=== PATIENT | female | born 1955 | race Caucasian/White ===

== ENCOUNTER 2017-12-08 02:13 | Observation (INO) | payer OTHER ==
[~2017-12-08] VITALS: Ht 172.7 cm; Wt 82.0 kg
[2017-12-08 02:42] LABS: BASOPHILS ABSOLUTE AUTO 0.01 K/mm3 (0.00-0.23); BASOPHILS PERCENT AUTO 0 % (0-2); EOSINOPHILS PERCENT AUTO 0 % (0-6); Hematocrit 25.3 % (33.0-51.0); Hemoglobin 7.5 g/dL (11.5-16.0); IMMATURE GRAN ABSOLUTE AUTO 0.02 K/mm3 (0.00-0.10); IMMATURE GRAN PERCENT AUTO 0 % (0-1); LYMPHOCYTES PERCENT AUTO 23 % (21-46); MONOCYTES ABSOLUTE AUTO 0.54 K/mm3 (0.16-1.47); MONOCYTES PERCENT AUTO 10 % (4-13); Mean Corpuscular HGB 30.6 pg (26.0-34.0); Mean Corpuscular HGB Conc 29.6 g/dL (31.5-36.5); Mean Corpuscular Volume 103 fL (80-100); Mean Platelet Volume 11.9 fL (9.1-12.4); NEUTROPHILS ABSOLUTE AUTO 3.49 K/mm3 (1.96-9.15); NEUTROPHILS PERCENT AUTO 66 % (41-73); Platelet Count 90 K/mm3 (150-400); RDW Coefficient Variation 15.9 % (11.7-14.2); RDW Standard Deviation 59.7 fL (35.1-46.3); Red Blood Cell Count 2.45 M/mm3 (3.80-5.20); White Blood Cell Count 5.26 K/mm3 (4.00-11.30)
[2017-12-08] MEDS ORDERED: Humalog100 UNIT/1 (02:55)
[2017-12-08] MEDS ORDERED: ALBU90OI INH (02:56)
[2017-12-08] MEDS ORDERED: LISI20 PO (02:56)
[2017-12-08] MEDS ORDERED: INSDET100 SC (02:56)
[2017-12-08] MEDS ORDERED: METO25ER PO (02:57)
[2017-12-08 03:05] LABS: Alanine Aminotransfer (ALT/SGP 57 U/L (12-78); Albumin, Blood 3.4 g/dL (3.4-5.0); Albumin/Globulin Ratio 0.9 (0.8-1.8); Alk Phos 174 U/L (50-136); Anion Gap 6 mmol/L (6-16); Aspartate Aminotrans (AST/SGOT 44 U/L (12-37); Bilirubin, Total 0.2 mg/dL (0.1-1.0); Blood Urea Nitrogen 7 mg/dL (8-24); Bun/Creatinine Ratio 11.3 (12.0-20.0); CO2, Blood 25 mmol/L (21-32); Calcium, Blood 7.9 mg/dL (8.5-10.1); Chloride, Blood 110 mmol/L (98-108); Creatinine, Blood 0.62 mg/dL (0.40-1.00); Globulin, Blood 3.8 g/dL (2.2-4.0); Glomerular Filtration Rate >60 (60-); Glucose, Blood 110 mg/dL (70-99); Potassium, Blood 3.9 mmol/L (3.5-5.5); Sodium, Blood 141 mmol/L (136-145); Total Protein, Blood 7.2 g/dL (6.4-8.2); Troponin I <0.015 ng/mL (0.000-0.040)
[2017-12-08 03:40] LABS: Ethanol (Alcohol), Blood, Med <3 mg/dL
[2017-12-08 04:26] LABS: IMMATURE RETIC FRACTION 22.5 % (2.3-16.0); RETIC HGB EQUIVALENT 24.7 pg (28.20-36.60); RETICULOCYTE ABSOLUTE 0.1277 M/mm3 (0.0200-0.1100); RETICULOCYTE COUNT PERCENT 5.17 % (0.50-2.50)
[2017-12-08 04:39] LABS: Percent Saturation 6.7 % (15.0-50.0)
[2017-12-08] MEDS ORDERED: ACET500 PO (05:53)
[2017-12-08] MEDS ORDERED: Flonase 0.05% N16 GM (05:55)
[2017-12-08 06:14] LABS: BASOPHILS ABSOLUTE AUTO 0.01 K/mm3 (0.00-0.23); BASOPHILS PERCENT AUTO 0 % (0-2); EOSINOPHILS PERCENT AUTO 0 % (0-6); Hematocrit 25.8 % (33.0-51.0); Hemoglobin 7.7 g/dL (11.5-16.0); IMMATURE GRAN ABSOLUTE AUTO 0.03 K/mm3 (0.00-0.10); IMMATURE GRAN PERCENT AUTO 1 % (0-1); LYMPHOCYTES PERCENT AUTO 15 % (21-46); MONOCYTES ABSOLUTE AUTO 0.42 K/mm3 (0.16-1.47); MONOCYTES PERCENT AUTO 8 % (4-13); Mean Corpuscular HGB 30.7 pg (26.0-34.0); Mean Corpuscular HGB Conc 29.8 g/dL (31.5-36.5); Mean Corpuscular Volume 103 fL (80-100); Mean Platelet Volume 11.9 fL (9.1-12.4); NEUTROPHILS ABSOLUTE AUTO 4.03 K/mm3 (1.96-9.15); NEUTROPHILS PERCENT AUTO 76 % (41-73); Platelet Count 92 K/mm3 (150-400); RDW Coefficient Variation 15.9 % (11.7-14.2); Red Blood Cell Count 2.51 M/mm3 (3.80-5.20); White Blood Cell Count 5.29 K/mm3 (4.00-11.30)
[2017-12-08 06:38] LABS: Alanine Aminotransfer (ALT/SGP 54 U/L (12-78); Albumin, Blood 3.5 g/dL (3.4-5.0); Albumin/Globulin Ratio 0.9 (0.8-1.8); Alk Phos 182 U/L (50-136); Anion Gap 7 mmol/L (6-16); Aspartate Aminotrans (AST/SGOT 32 U/L (12-37); Bilirubin, Total 0.3 mg/dL (0.1-1.0); Blood Urea Nitrogen 7 mg/dL (8-24); Bun/Creatinine Ratio 10.5 (12.0-20.0); CO2, Blood 25 mmol/L (21-32); Calcium, Blood 8.3 mg/dL (8.5-10.1); Chloride, Blood 110 mmol/L (98-108); Creatinine, Blood 0.67 mg/dL (0.40-1.00); Globulin, Blood 3.7 g/dL (2.2-4.0); Glomerular Filtration Rate >60 (60-); Glucose, Blood 98 mg/dL (70-99); Potassium, Blood 4.2 mmol/L (3.5-5.5); Sodium, Blood 142 mmol/L (136-145); Total Protein, Blood 7.2 g/dL (6.4-8.2)
[2017-12-08 11:57] LABS: Hematocrit 27.4 % (33.0-51.0); Hemoglobin 8.7 g/dL (11.5-16.0)
[2017-12-08 12:23] LABS: CPK Creatine Kinase 95 U/L (26-193); Troponin I <0.015 ng/mL (0.000-0.040)
[2017-12-08] MEDS ORDERED: Sleep Aid25 MG PO (16:50)
[2017-12-08 20:06] LABS: Hematocrit 27.4 % (33.0-51.0); Hemoglobin 8.4 g/dL (11.5-16.0)
[2017-12-08 20:16] LABS: Troponin I 0.015 ng/mL (0.000-0.040)
[2017-12-09 03:52] LABS: Hemoglobin 8.2 g/dL (11.5-16.0)
[2017-12-09] MEDS ORDERED: ALPR.5 PO (10:19)
[2017-12-09] MEDS ORDERED: FURO20 PO (10:22)
== END 2017-12-09 13:46 | disposition home or self-care (01) ==
LOC: ER 02:13 → PCU 02:14 → ER 04:22 → PCU 04:22
PROVIDERS: Emergency Medicine; Internal Medicine; Physician Assistant
DX: I16.1 Hypertensive emergency (principal); I11.0 Hypertensive heart disease with heart failure; I50.1 Left ventricular failure, unspecified; D50.9 Iron deficiency anemia, unspecified; F41.9 Anxiety disorder, unspecified; J45.909 Unspecified asthma, uncomplicated; E11.9 Type 2 diabetes mellitus without complications; R07.9 Chest pain, unspecified; R06.03 Acute respiratory distress; Z79.4 Long term (current) use of insulin; Z79.899 Other long term (current) drug therapy; Z88.6 Allergy status to analgesic agent
CPT/HCPCS: 36415; 36430; 71046; 80053; 82550; 82728; 82947; 83540; 83550; 83690; 83880; 84484; 85014; 85018; 85025; 85045; 86850; 86900; 86901; 86923; 93005; 93010; 93306; 94640; 94760; 96374; 99285; G0378; G0480; J1650; J1815; J1940; P9016; Q0163

== ENCOUNTER → 2018-02-14 | Outpatient (CLI) | payer OTHER ==
[~2018-02-14] MED LIST: ACET500 PO; ALBU90OI INH; ALPR.5 PO; FURO20 PO; Flonase 0.05% N16 GM; Humalog100 UNIT/1; INSDET100 SC; LISI20 PO; METO25ER PO; Sleep Aid25 MG PO
[2018-02-14 18:05] LABS: BASOPHILS PERCENT AUTO 0 % (0-2); EOSINOPHILS PERCENT AUTO 0 % (0-6); Hematocrit 29.9 % (33.0-51.0); Hemoglobin 9.8 g/dL (11.5-16.0); IMMATURE GRAN ABSOLUTE AUTO 0.02 K/mm3 (0.00-0.10); IMMATURE GRAN PERCENT AUTO 0 % (0-1); LYMPHOCYTES ABSOLUTE AUTO 0.89 K/mm3 (0.84-5.20); LYMPHOCYTES PERCENT AUTO 20 % (21-46); MONOCYTES ABSOLUTE AUTO 0.34 K/mm3 (0.16-1.47); MONOCYTES PERCENT AUTO 8 % (4-13); Mean Corpuscular HGB 31.8 pg (26.0-34.0); Mean Corpuscular HGB Conc 32.8 g/dL (31.5-36.5); Mean Corpuscular Volume 97 fL (80-100); NEUTROPHILS ABSOLUTE AUTO 3.28 K/mm3 (1.96-9.15); NEUTROPHILS PERCENT AUTO 73 % (41-73); RDW Standard Deviation 65.9 fL (35.1-46.3); Red Blood Cell Count 3.08 M/mm3 (3.80-5.20); White Blood Cell Count 4.53 K/mm3 (4.00-11.30)
[2018-02-14 18:17] LABS: Mean Platelet Volume 13.1 fL (9.1-12.4)
[2018-02-14 18:23] LABS: Platelet Count 46 K/mm3 (150-400)
[2018-02-14 18:33] LABS: Alanine Aminotransfer (ALT/SGP 37 U/L (12-78); Albumin, Blood 3.3 g/dL (3.4-5.0); Albumin/Globulin Ratio 0.9 (0.8-1.8); Alk Phos 179 U/L (50-136); Anion Gap 4 mmol/L (6-16); Aspartate Aminotrans (AST/SGOT 23 U/L (12-37); Bilirubin, Total 0.4 mg/dL (0.1-1.0); Blood Urea Nitrogen 12 mg/dL (8-24); Bun/Creatinine Ratio 15.6 (12.0-20.0); CHOL/HDL RATIO 4.5; CO2, Blood 22 mmol/L (21-32); Chloride, Blood 110 mmol/L (98-108); Cholesterol 76 mg/dL (50-200); Creatinine, Blood 0.77 mg/dL (0.40-1.00); Globulin, Blood 3.7 g/dL (2.2-4.0); Glomerular Filtration Rate >60 (60-); Glucose, Blood 92 mg/dL (70-99); HDL Cholesterol 17 mg/dL (>39); Low Density Lipoprotein Chol 34 mg/dL (0-110); Potassium, Blood 4.4 mmol/L (3.5-5.5); Sodium, Blood 136 mmol/L (136-145); Triglycerides 123 mg/dL (30-160); Very Low Density Lipoprot Chol 24 mg/dL (6-32)
== END ==
LOC: LAB 17:10 → LAB SHORT 17:10
PROVIDERS: Nurse Practitioner Family
DX: E11.9 Type 2 diabetes mellitus without complications (principal)
CPT/HCPCS: 80053; 80061; 82043; 83036; 85025

== ENCOUNTER 2018-04-21 14:02 | Emergency (ER) | payer OTHER ==
[~2018-04-21] VITALS: Ht 170.2 cm; Wt 73.5 kg
[2018-04-21 14:45] LABS: BASOPHILS PERCENT AUTO 0 % (0-2); EOSINOPHILS ABSOLUTE AUTO 0.03 K/mm3 (0.00-0.68); EOSINOPHILS PERCENT AUTO 1 % (0-6); Hemoglobin 8.9 g/dL (11.5-16.0); IMMATURE GRAN ABSOLUTE AUTO 0.01 K/mm3 (0.00-0.10); IMMATURE GRAN PERCENT AUTO 0 % (0-1); LYMPHOCYTES ABSOLUTE AUTO 1.24 K/mm3 (0.84-5.20); LYMPHOCYTES PERCENT AUTO 28 % (21-46); MONOCYTES ABSOLUTE AUTO 0.49 K/mm3 (0.16-1.47); MONOCYTES PERCENT AUTO 11 % (4-13); Mean Corpuscular HGB 35.5 pg (26.0-34.0); Mean Corpuscular Volume 108 fL (80-100); Mean Platelet Volume 12.5 fL (9.1-12.4); NEUTROPHILS ABSOLUTE AUTO 2.73 K/mm3 (1.96-9.15); NEUTROPHILS PERCENT AUTO 61 % (41-73); NRBC ABSOLUTE 0.02 K/mm3 (0.00-0.02); NRBC Auto 0.4 /100 WBC (0.0-0.2); Platelet Count 71 K/mm3 (150-400); RDW Coefficient Variation 17.3 % (11.7-14.2); Red Blood Cell Count 2.51 M/mm3 (3.80-5.20)
[2018-04-21 14:55] LABS: International Normalized Ratio 1.03; Prothrombin Time Results 10.6 Sec (9.7-11.5)
[2018-04-21 15:00] LABS: Alanine Aminotransfer (ALT/SGP 46 U/L (12-78); Albumin, Blood 3.6 g/dL (3.4-5.0); Albumin/Globulin Ratio 0.9 (0.8-1.8); Alk Phos 188 U/L (50-136); Anion Gap 5 mmol/L (6-16); Aspartate Aminotrans (AST/SGOT 30 U/L (12-37); Bilirubin, Total 0.3 mg/dL (0.1-1.0); Blood Urea Nitrogen 14 mg/dL (8-24); Bun/Creatinine Ratio 18.9 (12.0-20.0); CO2, Blood 23 mmol/L (21-32); Calcium, Blood 8.6 mg/dL (8.5-10.1); Chloride, Blood 113 mmol/L (98-108); Creatinine, Blood 0.74 mg/dL (0.40-1.00); Globulin, Blood 3.8 g/dL (2.2-4.0); Glomerular Filtration Rate >60 (60-); Glucose, Blood 112 mg/dL (70-99); Potassium, Blood 4.5 mmol/L (3.5-5.5); Sodium, Blood 141 mmol/L (136-145); Total Protein, Blood 7.4 g/dL (6.4-8.2)
== END 2018-04-21 20:01 | disposition left against medical advice (07) ==
LOC: ER 14:02
PROVIDERS: Emergency Medicine
DX: Z53.21 Procedure and treatment not carried out due to patient leaving prior to being seen by health care provider (principal)
CPT/HCPCS: 36415; 70450; 80053; 85025; 85610; 99284

== ENCOUNTER → 2019-03-06 | Outpatient (CLI) | payer OTHER | LOC: LAB SHORT 15:00 → LAB 15:00 | DX: N90.7 Vulvar cyst (principal) | CPT/HCPCS: 87070; 87075; 87205 ==

== ENCOUNTER 2019-03-20 18:44 | Inpatient (IN) | payer OTHER ==
[~2019-03-20] VITALS: Ht 170.2 cm; Wt 63.7 kg
[~2019-03-20 18:44] MED LIST changes: -Humalog100 UNIT/1; +Humalog100 UNIT/3 SC
[2019-03-20 19:39] LABS: Source, Urine Catheter
[2019-03-20 19:47] LABS: Blood, Urine 2+ (Neg); Glucose Qualitative, Urine Neg (Neg); Ketones, Urine 1+ (Neg); Leukocyte Esterase, Urine 3+ (Neg); Nitrite, Urine Neg (Neg); Protein, Urine 3+ (Neg); Urobilinogen, Urine NORM (Normal)
[2019-03-20 19:54] LABS: BASOPHILS ABSOLUTE AUTO 0.01 K/mm3 (0.00-0.23); BASOPHILS PERCENT AUTO 0 % (0-2); EOSINOPHILS PERCENT AUTO 0 % (0-6); Hematocrit 35.1 % (33.0-51.0); Hemoglobin 11.2 g/dL (11.5-16.0); IMMATURE GRAN ABSOLUTE AUTO 0.03 K/mm3 (0.00-0.10); IMMATURE GRAN PERCENT AUTO 1 % (0-1); LYMPHOCYTES ABSOLUTE AUTO 0.82 K/mm3 (0.84-5.20); LYMPHOCYTES PERCENT AUTO 13 % (21-46); MONOCYTES PERCENT AUTO 8 % (4-13); Mean Corpuscular HGB 33.7 pg (26.0-34.0); Mean Corpuscular HGB Conc 31.9 g/dL (31.5-36.5); Mean Corpuscular Volume 106 fL (80-100); NEUTROPHILS ABSOLUTE AUTO 4.83 K/mm3 (1.96-9.15); NEUTROPHILS PERCENT AUTO 78 % (41-73); NRBC ABSOLUTE 0.03 K/mm3 (0.00-0.02); NRBC Auto 0.5 /100 WBC (0.0-0.2); Platelet Count 60 K/mm3 (150-400); RDW Coefficient Variation 20.2 % (11.7-14.2); RDW Standard Deviation 77.7 fL (35.1-46.3); Red Blood Cell Count 3.32 M/mm3 (3.80-5.20); White Blood Cell Count 6.19 K/mm3 (4.00-11.30)
[2019-03-20 19:56] LABS: Appearance, Urine Cloudy (Clear); Bilirubin, Urine 2+ (Neg); Color, Urine Yellow (P-Yellow)
[2019-03-20 19:58] LABS: Bacteria Many /hpf; Red Blood Cells, Urine 0-2 /hpf (0-2); Renal Epithelial Few /hpf (0-Rare); Squamous Epithelial Cells Rare /hpf (Few); Transitional Epithelial Cells Few /hpf (0-Rare); White Blood Cells, Urine TNTC /hpf (0-5)
[2019-03-20 20:08] LABS: International Normalized Ratio 3.06; Prothrombin Time Results 29.3 Sec (9.7-11.5)
[2019-03-20] MEDS ORDERED: BASAGLAR K100 UNIT/1 (20:12)
[2019-03-20] MEDS ORDERED: Humalog100 UNIT/1 (20:12)
[2019-03-20 20:24] LABS: Alanine Aminotransfer (ALT/SGP 34 U/L (12-78); Albumin, Blood 3.5 g/dL (3.4-5.0); Albumin/Globulin Ratio 0.9 (0.8-1.8); Alk Phos 266 U/L (50-136); Anion Gap 10 mmol/L (6-16); Aspartate Aminotrans (AST/SGOT 16 U/L (12-37); Bilirubin, Total 0.2 mg/dL (0.1-1.0); Blood Urea Nitrogen 92 mg/dL (8-24); Bun/Creatinine Ratio 28.1 (12.0-20.0); CO2, Blood 12 mmol/L (21-32); Calcium, Blood 7.4 mg/dL (8.5-10.1); Chloride, Blood 113 mmol/L (98-108); Creatinine, Blood 3.27 mg/dL (0.40-1.00); Glomerular Filtration Rate 15 (60-); Glucose, Blood 116 mg/dL (70-99); Magnesium, Blood 2.4 mg/dL (1.6-2.4); Potassium, Blood 4.2 mmol/L (3.5-5.5); Sodium, Blood 135 mmol/L (136-145); Total Protein, Blood 7.5 g/dL (6.4-8.2); Troponin I <0.015 ng/mL (0.000-0.040)
--- NOTE | 2019-03-21 00:30 | NUR ---
ASSUMED CARE PT ARRIVED TO UNIT APPROX 0005 VIA [facility] FROM ED. PT ABLE T TRANSFER FROM [facility] TO BED AND TOLERATED WELL. DENIES ANY DIZZY OR LIGHTHEADEDNESS WITH THIS. ORIENTED PT TO ROOM, UNIT, AND POLICIES. PT A&O X4, ALTHOUGH A POOR HISTORIAN AND SLIGHTLY FORGETFUL AT TIMES. PT ASKED SOME REPEAT QUESTIONS. ASSESSMENT COMPLETED. VITAL SIGNS STABLE, ALTHOUGH BLOOD PRESSURE SLIGHTLY LOW. BUT MAP REMAINS IN 60 AT THIS TIME. FLUIDS STARTED PER EMAR. AND WILL CONTINUE TO MONITOR THIS. ADDMISSION PROCESS COMPLETED, BEST TO ABILITY. BED IN LOW POSITION, BED ALARM ON, CALL LIGHT IN REACH AND PT DENIES ANY NEEDS AT THIS TIME. WILL CONTINUE TO MONITOR.
[2019-03-21] MEDS ORDERED: METO50 PO (00:32)
[2019-03-21] MEDS ORDERED: Lipitor20 MG PO (00:34)
[2019-03-21] MEDS ORDERED: BUSP5 PO (00:36)
[2019-03-21] MEDS ORDERED: BASAGLAR K100 UNIT/1 SC (00:42)
[2019-03-21 04:44] LABS: BASOPHILS PERCENT AUTO 0 % (0-2); EOSINOPHILS PERCENT AUTO 0 % (0-6); Hematocrit 27.5 % (33.0-51.0); Hemoglobin 8.8 g/dL (11.5-16.0); IMMATURE GRAN ABSOLUTE AUTO 0.02 K/mm3 (0.00-0.10); IMMATURE GRAN PERCENT AUTO 1 % (0-1); LYMPHOCYTES ABSOLUTE AUTO 0.96 K/mm3 (0.84-5.20); LYMPHOCYTES PERCENT AUTO 26 % (21-46); MONOCYTES ABSOLUTE AUTO 0.35 K/mm3 (0.16-1.47); MONOCYTES PERCENT AUTO 10 % (4-13); Mean Corpuscular HGB 33.3 pg (26.0-34.0); Mean Corpuscular Volume 104 fL (80-100); NEUTROPHILS ABSOLUTE AUTO 2.36 K/mm3 (1.96-9.15); NEUTROPHILS PERCENT AUTO 64 % (41-73); RDW Standard Deviation 76.2 fL (35.1-46.3); Red Blood Cell Count 2.64 M/mm3 (3.80-5.20); White Blood Cell Count 3.69 K/mm3 (4.00-11.30)
[2019-03-21 04:51] LABS: Mean Platelet Volume 13.3 fL (9.1-12.4)
[2019-03-21 04:53] LABS: Platelet Count 41 K/mm3 (150-400)
[2019-03-21 04:54] LABS: International Normalized Ratio 3.06; Prothrombin Time Results 29.3 Sec (9.7-11.5)
[2019-03-21 05:06] LABS: Albumin, Blood 2.8 g/dL (3.4-5.0); Albumin/Globulin Ratio 0.9 (0.8-1.8); Bilirubin, Total 0.3 mg/dL (0.1-1.0); Bun/Creatinine Ratio 38.1 (12.0-20.0); Calcium, Blood 7.1 mg/dL (8.5-10.1); Creatinine, Blood 2.1 mg/dL (0.40-1.00); Potassium, Blood 3.7 mmol/L (3.5-5.5); Total Protein, Blood 5.8 g/dL (6.4-8.2)
--- NOTE | 2019-03-21 06:32 | NUR ---
SHIFT SUMMARY PT PLEASANT, COOPERATIVE AND USES CALL LIGHT APPROPRIATELY. PT REMAINS A&O X4, ALTHOUGH AT TIMES HAD A HARD TIME FOLLOWING CONVERSATIONS. ASSESSMENT FINDINGS REMAIN UNCHANGED SINCE ADMISSION. PT AWAKE FOR MOST OF SHIFT. NO S/SX OF ACUTE DISTRESS. BED IN LOW POSITION, CALL LIGHT IN REACH, BED ALARM ON, AND PT DENIES ANY NEEDS AT THIS TIME.
--- NOTE | 2019-03-21 07:45 | NUR ---
AM ASSESSMENT: Pt CBG was 47 this am. Pt sitting up in bed talking and communicating without difficulty. Was given OJ and pt drank it all. States "it tastes really good". LS clear. BT hyperactive. PT states that she does have some abd tenderness and pain with palpation. Pulses palp. Pt is A/o x4 however sometimes conversation is hard to follow. Pt denies other needs at this time. Will continue to monitor. Call light in reach.
--- NOTE | 2019-03-21 10:35 | NUR ---
Spiritual care visit conducted. Patient is sitting up in bed and alert. Patient is very talkative and openly shared about her family, shalonda and medical history. Patient admitted to feeling anxious about her medical conditions. I facilitated a life review, reinforced helpful attitudes and practices, explored patient's islam background, quoted inspirational Bible verses, provided a calming presence and normalized patient's experience. Patient responded well and showed signs of reduced stress.
--- NOTE | 2019-03-21 17:18 | NUR ---
SHIFT SUMMARY: Pt has medical floor orders. Report given to ONEIDA Puente and Pt transfered via W/C to room 358. Pt stable at time of transfer. Pt has done well this shift. Has been up to BSC multiple times with one assist. Pt did go into the bathroom at one point but became cloustrophobic and requested to use the BSC from then on. Pt states that she has problems with anxiety and does not want to panic. VSS throughout shift. Pt has been 100% on RA even though pt states that she feels like she needs oxygen. Assured her that she was fine on RA. PT has seen Pt and worked with her. Recomending SNF placement. Awaiting lab results. No acute changes at this time and stable at end of shift.
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
[2019-03-21 21:07] LABS: Percent Saturation 22.4 % (15.0-50.0)
[2019-03-22 00:07] LABS: Adenovirus F 40/41 Not Detected (NOT DETECT); Astrovirus Not Detected (NOT DETECT); Campylobacter Sp Not Detected (NOT DETECT); Cryptosporidium Not Detected (NOT DETECT); Cyclospora Cayetanensis Not Detected (NOT DETECT); E. Coli O157 Not Detected (NOT DETECT); Entamoeba Histolytica Not Detected (NOT DETECT); Enteroaggregative E. coli-EAEC Not Detected (NOT DETECT); Enteropathogenic E. coli-EPEC Not Detected (NOT DETECT); Enterotoxigenic E. coli-ETEC Not Detected (NOT DETECT); Giardia Lamblia Not Detected (NOT DETECT); Norovirus GI/GII Not Detected (NOT DETECT); Plesiomonas Shigelloides Not Detected (NOT DETECT); Rotavirus A Not Detected (NOT DETECT); Salmonella Sp Not Detected (NOT DETECT); Sapovirus Not Detected (NOT DETECT); Shiga Toxin-prod E. coli-STEC Not Detected (NOT DETECT); Shigella/Enteroin E. coli-EIEC Not Detected (NOT DETECT); Vibrio Cholerae Not Detected (NOT DETECT); Vibrio Sp Not Detected (NOT DETECT); Yersinia Enterocolitica Not Detected (NOT DETECT)
[2019-03-22 05:42] LABS: BASOPHILS PERCENT AUTO 0 % (0-2); EOSINOPHILS PERCENT AUTO 0 % (0-6); Hematocrit 22.9 % (33.0-51.0); Hemoglobin 7.3 g/dL (11.5-16.0); IMMATURE GRAN ABSOLUTE AUTO 0.01 K/mm3 (0.00-0.10); IMMATURE GRAN PERCENT AUTO 0 % (0-1); LYMPHOCYTES ABSOLUTE AUTO 1.18 K/mm3 (0.84-5.20); LYMPHOCYTES PERCENT AUTO 39 % (21-46); MONOCYTES PERCENT AUTO 10 % (4-13); Mean Corpuscular HGB 33.3 pg (26.0-34.0); Mean Corpuscular HGB Conc 31.9 g/dL (31.5-36.5); Mean Corpuscular Volume 105 fL (80-100); NEUTROPHILS ABSOLUTE AUTO 1.56 K/mm3 (1.96-9.15); NEUTROPHILS PERCENT AUTO 51 % (41-73); RDW Coefficient Variation 20.4 % (11.7-14.2); RDW Standard Deviation 77.3 fL (35.1-46.3); Red Blood Cell Count 2.19 M/mm3 (3.80-5.20); White Blood Cell Count 3.05 K/mm3 (4.00-11.30)
[2019-03-22 05:49] LABS: Platelet Count 28 K/mm3 (150-400)
[2019-03-22 06:13] LABS: Alanine Aminotransfer (ALT/SGP 26 U/L (12-78); Albumin, Blood 2.5 g/dL (3.4-5.0); Albumin/Globulin Ratio 0.8 (0.8-1.8); Alk Phos 171 U/L (50-136); Anion Gap 9 mmol/L (6-16); Aspartate Aminotrans (AST/SGOT 20 U/L (12-37); Bilirubin, Total 0.7 mg/dL (0.1-1.0); Blood Urea Nitrogen 44 mg/dL (8-24); Bun/Creatinine Ratio 52.1 (12.0-20.0); CO2, Blood 14 mmol/L (21-32); Calcium, Blood 7.1 mg/dL (8.5-10.1); Chloride, Blood 118 mmol/L (98-108); Creatinine, Blood 0.85 mg/dL (0.40-1.00); Glomerular Filtration Rate >60 (60-); Glucose, Blood 81 mg/dL (70-99); Potassium, Blood 3.2 mmol/L (3.5-5.5); Sodium, Blood 141 mmol/L (136-145); Total Protein, Blood 5.5 g/dL (6.4-8.2)
--- NOTE | 2019-03-22 07:31 | NUR ---
SHIFT SUMMARY PATIENT IS ALERT AND CONFUSED. PATIENT LIKES TO TALK A LOT WITH STAFF AND ASK ABOUT CURRENT DISEASE PROCESS AND WANTS TO LEARN ABOUT HER CURRENT STATUS. PATIENT HAD A CRITICAL PLATELET COUNT THIS AM, LOW BLOOD SUGAR. NOTIFIED CHARGE, DOCTOR, AND DAYSHIFT RN. BED ALARM IS ON AND SUMMER CHILD CAREGIVER NOTIFIED SHE IS A HIGH FALL RISK AND TO NOT BE LEFT ALONE WHEN UP ON BSC. VITALS STABLE.
--- NOTE | 2019-03-22 07:45 | NUR ---
NOTIFIED LABS; HEMO 8.8 TO 7.3, POTASSIUM 3.2, ALBUMIN 3.5 TO 2.5, AND PLATLETS 41 TO 28. STS ORDERED CONSULT. ORDER HAS NOT COME ACROSS YET, BUT WILL CALL.
[2019-03-22 09:56] LABS: Phosphorus, Blood 3.1 mg/dL (2.5-4.9)
--- NOTE | 2019-03-22 15:41 | NUR ---
ALERT. ORIENTED, BUT GOES OFF ON DIFFERENT TANGENTS OFTEN. TOLERATED TRANSFUSION. TOLERATING B.R.A.T. DIET WELL. COOPERATIVE. KNOWS TO USE CALL LIGHT. BSC NEXT TO BED. UNLABORED RESPIRATIONS. DENIES PAIN. WCTM.
--- NOTE | 2019-03-22 18:54 | NUR ---
WAS IN TO SEE PATIENT. [facility] WILL ORDER GI CONSULT FOR DX OF INFLAMMATORY BOWEL DISEASE.
[2019-03-23 02:08] LABS: HBSAG SCREEN Negative (Negative); HEP A AB, IGM Negative (Negative); HEP B CORE AB, IGM Negative (Negative); HEP C VIRUS AB <0.1 (0.0-0.9)
[2019-03-23 05:04] LABS: BASOPHILS PERCENT AUTO 0 % (0-2); EOSINOPHILS PERCENT AUTO 0 % (0-6); Hematocrit 24.5 % (33.0-51.0); Hemoglobin 8.2 g/dL (11.5-16.0); IMMATURE GRAN ABSOLUTE AUTO 0.01 K/mm3 (0.00-0.10); IMMATURE GRAN PERCENT AUTO 0 % (0-1); LYMPHOCYTES ABSOLUTE AUTO 0.97 K/mm3 (0.84-5.20); LYMPHOCYTES PERCENT AUTO 41 % (21-46); MONOCYTES ABSOLUTE AUTO 0.27 K/mm3 (0.16-1.47); MONOCYTES PERCENT AUTO 11 % (4-13); Mean Corpuscular HGB 33.6 pg (26.0-34.0); Mean Corpuscular HGB Conc 33.5 g/dL (31.5-36.5); NEUTROPHILS ABSOLUTE AUTO 1.12 K/mm3 (1.96-9.15); NEUTROPHILS PERCENT AUTO 47 % (41-73); NRBC ABSOLUTE 0.02 K/mm3 (0.00-0.02); NRBC Auto 0.8 /100 WBC (0.0-0.2); RDW Coefficient Variation 21.2 % (11.7-14.2); RDW Standard Deviation 77.4 fL (35.1-46.3); Red Blood Cell Count 2.44 M/mm3 (3.80-5.20); White Blood Cell Count 2.37 K/mm3 (4.00-11.30)
[2019-03-23 05:25] LABS: Hematocrit 24.5 % (33.0-51.0); Hemoglobin 8.2 g/dL (11.5-16.0); Mean Corpuscular HGB 33.5 pg (26.0-34.0); Mean Corpuscular HGB Conc 33.5 g/dL (31.5-36.5); NRBC ABSOLUTE 0.02 K/mm3 (0.00-0.02); NRBC Auto 0.8 /100 WBC (0.0-0.2); RDW Coefficient Variation 21.2 % (11.7-14.2); RDW Standard Deviation 76.2 fL (35.1-46.3); Red Blood Cell Count 2.45 M/mm3 (3.80-5.20); White Blood Cell Count 2.43 K/mm3 (4.00-11.30)
[2019-03-23 05:29] LABS: Alanine Aminotransfer (ALT/SGP 28 U/L (12-78); Albumin, Blood 2.4 g/dL (3.4-5.0); Albumin/Globulin Ratio 0.9 (0.8-1.8); Alk Phos 159 U/L (50-136); Anion Gap 9 mmol/L (6-16); Aspartate Aminotrans (AST/SGOT 19 U/L (12-37); Bilirubin, Total 0.3 mg/dL (0.1-1.0); Blood Urea Nitrogen 17 mg/dL (8-24); Bun/Creatinine Ratio 23.8 (12.0-20.0); CO2, Blood 15 mmol/L (21-32); Calcium, Blood 7.4 mg/dL (8.5-10.1); Chloride, Blood 122 mmol/L (98-108); Creatinine, Blood 0.71 mg/dL (0.40-1.00); Globulin, Blood 2.7 g/dL (2.2-4.0); Glomerular Filtration Rate >60 (60-); Glucose, Blood 77 mg/dL (70-99); Potassium, Blood 3.5 mmol/L (3.5-5.5); Sodium, Blood 146 mmol/L (136-145); Total Protein, Blood 5.1 g/dL (6.4-8.2)
[2019-03-23 05:33] LABS: Mean Corpuscular Volume 100 fL (80-100)
[2019-03-23 05:35] LABS: Platelet Count 26 K/mm3 (150-400)
[2019-03-23 05:36] LABS: Mean Corpuscular Volume 100 fL (80-100); Platelet Count 27 K/mm3 (150-400)
[2019-03-23 05:54] LABS: BASOPHILS PERCENT MAN 0 % (0-2); EOSINOPHILS PERCENT MAN 0 % (0-6); LYMPHOCYTES ABSOLUTE MAN 0.75 K/mm3 (0.84-5.20); LYMPHOCYTES PERCENT MAN 31 % (21-46); MONOCYTES ABSOLUTE MAN 0.14 K/mm3 (0.16-1.47); MONOCYTES PERCENT MAN 6 % (4-13); NEUTROPHILS ABSOLUTE MAN 1.53 K/mm3 (1.96-9.15); SEG NEUTROPHILS PERCENT MAN 63 % (41-73); TOTAL CELLS COUNTED 100
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
[2019-03-24 06:33] LABS: BASOPHILS PERCENT AUTO 0 % (0-2); EOSINOPHILS PERCENT AUTO 0 % (0-6); Hematocrit 27.5 % (33.0-51.0); IMMATURE GRAN ABSOLUTE AUTO 0.03 K/mm3 (0.00-0.10); IMMATURE GRAN PERCENT AUTO 1 % (0-1); LYMPHOCYTES PERCENT AUTO 28 % (21-46); MONOCYTES ABSOLUTE AUTO 0.54 K/mm3 (0.16-1.47); MONOCYTES PERCENT AUTO 17 % (4-13); Mean Corpuscular HGB 32.8 pg (26.0-34.0); Mean Corpuscular HGB Conc 32.7 g/dL (31.5-36.5); Mean Corpuscular Volume 100 fL (80-100); NEUTROPHILS ABSOLUTE AUTO 1.74 K/mm3 (1.96-9.15); NEUTROPHILS PERCENT AUTO 54 % (41-73); RDW Coefficient Variation 21.5 % (11.7-14.2); RDW Standard Deviation 78.6 fL (35.1-46.3); Red Blood Cell Count 2.74 M/mm3 (3.80-5.20); White Blood Cell Count 3.21 K/mm3 (4.00-11.30)
--- NOTE | 2019-03-24 06:36 | NUR ---
SHIFT SUMMARY PT A/O C/O HEADACHE AND MEDICATED PER EMAR. WANTS TO BE DONE WITH THE BRAT DIET. NO STOOL THIS SHIFT. INDEPENDENT TO BSC. SHE WAS ABLE TO SLEEP ON AND OFF T/O NIGHT SHE SAID MORE SLEEP THAN PREVIOUS NIGHT. CALL LIGHT IN REACH.
[2019-03-24 06:40] LABS: Platelet Count 28 K/mm3 (150-400)
[2019-03-24 06:46] LABS: Anion Gap 7 mmol/L (6-16); Blood Urea Nitrogen 8 mg/dL (8-24); Bun/Creatinine Ratio 11.6 (12.0-20.0); CO2, Blood 19 mmol/L (21-32); Calcium, Blood 7.4 mg/dL (8.5-10.1); Chloride, Blood 117 mmol/L (98-108); Creatinine, Blood 0.69 mg/dL (0.40-1.00); Glomerular Filtration Rate >60 (60-); Glucose, Blood 86 mg/dL (70-99); Potassium, Blood 3.6 mmol/L (3.5-5.5); Sodium, Blood 143 mmol/L (136-145)
[2019-03-24] MEDS ORDERED: FOLI1 PO (15:51)
[2019-03-24] MEDS ORDERED: CYAN1000I IM (15:51)
[2019-03-24] MEDS ORDERED: Culturelle1 CAP PO (15:52)
[2019-03-24] MEDS ORDERED: PANT40 PO (15:53)
[2019-03-24] MEDS ORDERED: FERRLECIT62.5 MG/5 IV (15:54)
[2019-03-24] MEDS ORDERED: CHOL10002 PO (15:55)
--- NOTE | 2019-03-24 18:46 | NUR ---
DISCHARGE NOTE- PT WAS GIVEN VERBAL AND WRITTEN DISCHARGE INSTRUCTIONS AND ACKNOWLEDGED UNDERSTANDING OF THEM. NO FURTHER QUESTIONS AT THE TIME OF DISCHARGE. IV'S DC'D PRIOR TO DISCHARGE, PT INSTRUCTED TO REMOVE COBAN IN 1 HOUR FROM IV REMOVAL.
--- NOTE | 2019-03-25 08:29 | NUR ---
LATE ENTRY: AFTER PATIENT D/C'D HOME, IT WAS NOTED THAT DR. CASTILLO ORDERED CEFTIN 500 MG PO BID #[id number] WITH NO REFILLS. THIS RN CALLED IN RX TO [facility]. ALSO, DR. CASTILLO ORDERED FOR PT TO FOLLOW UP WITH DR. VELEZ IN 1 MONTH. THIS RN CALLED PT AND NOTIFIED HER OF THE ABOVE. PT VERBALIZED UNDERSTANDING AND STATED SHE WAS ON HER WAY TO GET HER MEDICATIONS FROM THE PHARMACY.
[2019-03-25 19:05] LABS: T-TRANSGLUTAMINASE (TTG) IGA 51 U/mL (0-3); T-TRANSGLUTAMINASE (TTG) IGG <2 U/mL (0-5)
[2019-03-26 06:07] LABS: (LD) FRACTION 1 29 % (17-32); (LD) FRACTION 2 42 % (25-40); (LD) FRACTION 3 20 % (17-27); (LD) FRACTION 4 5 % (5-13); (LD) FRACTION 5 4 % (4-20); LDH 168 IU/L (119-226)
== END 2019-03-24 18:24 | disposition home or self-care (01) | DRG 683 ==
LOC: ER 18:44 → PCU 22:33 → MEDS 22:33 → PCU 23:51 → MEDS 03-21 17:06
PROVIDERS: Emergency Medicine; Internal Medicine; Internal Medicine Hematology & Oncology; ADMIT Hospitalist
PROC: 30233N1 Transfusion of Nonautologous Red Blood Cells into Peripheral Vein, Percutaneous Approach (ICD-10-PCS; principal; 2019-03-20)
DX: N17.9 Acute kidney failure, unspecified (principal); D68.9 Coagulation defect, unspecified; D61.818 Other pancytopenia; N39.0 Urinary tract infection, site not specified; E87.2 Acidosis; E87.1 Hypo-osmolality and hyponatremia; E86.0 Dehydration; I95.9 Hypotension, unspecified; D50.9 Iron deficiency anemia, unspecified; B96.20 Unspecified Escherichia coli [E. coli] as the cause of diseases classified elsewhere; E11.9 Type 2 diabetes mellitus without complications; K52.9 Noninfective gastroenteritis and colitis, unspecified; E63.9 Nutritional deficiency, unspecified; Z79.4 Long term (current) use of insulin; I10 Essential (primary) hypertension; E03.9 Hypothyroidism, unspecified; D69.6 Thrombocytopenia, unspecified; J45.909 Unspecified asthma, uncomplicated; E53.8 Deficiency of other specified B group vitamins
CPT/HCPCS: 36415; 36430; 74176; 80048; 80053; 80074; 81001; 82272; 82306; 82607; 82728; 82746; 82947; 83010; 83516; 83540; 83550; 83605; 83615; 83625; 83690; 83735; 83880; 84100; 84484; 85007; 85025; 85027; 85610; 86340; 86850; 86900; 86901; 86923; 87077; 87086; 87186; 87507; 93005; 93010; 96361-59; 96365-59; 96375-59; 97110; 97116; 97162; 97530; 99285-25; C9113; J0696; J1170; J2916; J3420; J7030; J7050; P9016; P9612

== ENCOUNTER 2019-04-04 00:25 | Day surgery (SDC) | payer OTHER ==
[~2019-04-04 00:25] MED LIST changes: +BASAGLAR K100 UNIT/1; +BASAGLAR K100 UNIT/1 SC; +BUSP5 PO; +CHOL10002 PO; +CYAN1000I IM; +Culturelle1 CAP PO; +FERRLECIT62.5 MG/5 IV; +FOLI1 PO; +Humalog100 UNIT/1; +Lipitor20 MG PO; +METO50 PO; +PANT40 PO
== END 2019-04-04 14:51 | disposition home or self-care (01) ==
LOC: ATC 00:25
DX: D50.9 Iron deficiency anemia, unspecified (principal); I10 Essential (primary) hypertension; E11.9 Type 2 diabetes mellitus without complications; E03.9 Hypothyroidism, unspecified; Z79.4 Long term (current) use of insulin; Z88.6 Allergy status to analgesic agent; Z88.0 Allergy status to penicillin; Z79.899 Other long term (current) drug therapy
CPT/HCPCS: 96365; 96372; J2916; J3420

== ENCOUNTER 2019-04-06 00:04 | Day surgery (SDC) | payer OTHER | END 2019-04-06 14:53 | disposition home or self-care (01) | LOC: ATC 00:04 | DX: D50.9 Iron deficiency anemia, unspecified (principal); I10 Essential (primary) hypertension; E11.9 Type 2 diabetes mellitus without complications; E03.9 Hypothyroidism, unspecified; Z79.4 Long term (current) use of insulin; Z88.6 Allergy status to analgesic agent; Z88.0 Allergy status to penicillin | CPT/HCPCS: 96365; 96372; J2916; J3420 ==

== ENCOUNTER 2019-04-11 00:08 | Day surgery (SDC) | payer OTHER | END 2019-04-11 14:44 | disposition home or self-care (01) | LOC: ATC 00:08 | DX: D50.9 Iron deficiency anemia, unspecified (principal); E11.9 Type 2 diabetes mellitus without complications; I10 Essential (primary) hypertension; E03.9 Hypothyroidism, unspecified; Z88.6 Allergy status to analgesic agent; Z88.0 Allergy status to penicillin; Z79.4 Long term (current) use of insulin | CPT/HCPCS: 96365; 96372; J2916; J3420 ==

== ENCOUNTER 2019-04-13 00:36 | Day surgery (SDC) | payer OTHER | END 2019-04-13 15:03 | disposition home or self-care (01) | LOC: ATC 00:36 | DX: D50.9 Iron deficiency anemia, unspecified (principal); E11.9 Type 2 diabetes mellitus without complications; I10 Essential (primary) hypertension; E03.9 Hypothyroidism, unspecified; Z88.0 Allergy status to penicillin; Z88.6 Allergy status to analgesic agent | CPT/HCPCS: 96365; 96372; J2916; J3420 ==

== ENCOUNTER → 2019-05-09 | Outpatient (CLI) | payer OTHER | END | disposition home or self-care (01) | LOC: LAB 14:32 → LAB SHORT 14:32 | DX: N39.0 Urinary tract infection, site not specified (principal) | CPT/HCPCS: 87086 ==

== ENCOUNTER 2021-04-17 11:22 | Inpatient (IN) | payer OTHER ==
[~2021-04-17] VITALS: Ht 172.7 cm; Wt 102.6 kg
[~2021-04-17 11:22] MED LIST changes: +BANOPHEN25 MG PO; -CHOL10002 PO; -Sleep Aid25 MG PO; +VITAMIN D31000 UNI1 PO
[2021-04-17] MEDS ORDERED: METFORMIN HCL1000 M7 PO (12:24)
[2021-04-17] MEDS ORDERED: PIOGLITAZONE HC15 MG PO (12:26)
[2021-04-17] MEDS ORDERED: Prinivil10 MG PO (12:26)
[2021-04-17] MEDS ORDERED: Vitamin B-121000 MCG PO (12:27)
[2021-04-17 12:30] LABS: BASOPHILS ABSOLUTE AUTO 0.03 K/mm3 (0.00-0.23); BASOPHILS PERCENT AUTO 0 % (0-2); EOSINOPHILS ABSOLUTE AUTO 0.03 K/mm3 (0.00-0.68); EOSINOPHILS PERCENT AUTO 0 % (0-6); Hematocrit 34.7 % (33.0-51.0); Hemoglobin 11.1 g/dL (11.5-16.0); IMMATURE GRAN ABSOLUTE AUTO 0.15 K/mm3 (0.00-0.10); IMMATURE GRAN PERCENT AUTO 1 % (0-1); LYMPHOCYTES ABSOLUTE AUTO 1.94 K/mm3 (0.84-5.20); LYMPHOCYTES PERCENT AUTO 16 % (21-46); MONOCYTES PERCENT AUTO 6 % (4-13); Mean Corpuscular HGB 30.7 pg (26.0-34.0); Mean Corpuscular Volume 96 fL (80-100); NEUTROPHILS PERCENT AUTO 77 % (41-73); Platelet Count 103 K/mm3 (150-400); RDW Coefficient Variation 15.7 % (11.7-14.2); RDW Standard Deviation 55.7 fL (35.1-46.3); Red Blood Cell Count 3.62 M/mm3 (3.80-5.20); White Blood Cell Count 12.05 K/mm3 (4.00-11.30)
[2021-04-17 12:44] LABS: Albumin, Blood 4.2 g/dL (3.4-5.0); Bilirubin, Total 0.3 mg/dL (0.1-1.0); Bun/Creatinine Ratio 17.3 (12.0-20.0); Calcium, Blood 8.9 mg/dL (8.5-10.1); Creatinine, Blood 5.72 mg/dL (0.40-1.00); Globulin, Blood 4.1 g/dL (2.2-4.0); Total Protein, Blood 8.3 g/dL (6.4-8.2)
[2021-04-17 13:04] LABS: Appearance, Urine Hazy (Clear); Blood, Urine 2+ (Neg); Color, Urine Yellow (P-Yellow); Glucose Qualitative, Urine Neg (Neg); Ketones, Urine 1+ (Neg); Leukocyte Esterase, Urine 3+ (Neg); Nitrite, Urine Neg (Neg); Protein, Urine 3+ (Neg); Urobilinogen, Urine NORM (Normal)
[2021-04-17 13:26] LABS: Bilirubin, Urine 3+ (Neg)
[2021-04-17 13:28] LABS: Bacteria Mod /hpf
[2021-04-17 13:29] LABS: Squamous Epithelial Cells Few /hpf (Few)
[2021-04-17 13:31] LABS: Hyaline Casts Rare /lpf (0-2)
[2021-04-17 15:38] LABS: Base Excess Venous -20.4 mmol/L; Bicarbonate Venous 9.9 mmol/L (24.0-30.0); PCO2 Venous 40.3 mmHg (38-42); PO2 Venous 54.4 mmHg (38-42)
[2021-04-17 15:39] LABS: pH Blood Venous 7.02 (7.34-7.37)
[2021-04-17 16:05] LABS: Prothrombin Time Results 10.8 Sec (9.7-11.5)
[2021-04-17 17:52] LABS: Bun/Creatinine Ratio 19.3 (12.0-20.0); Calcium, Blood 8.5 mg/dL (8.5-10.1); Creatinine, Blood 4.82 mg/dL (0.40-1.00); Potassium, Blood 5.7 mmol/L (3.5-5.5)
--- NOTE | 2021-04-17 18:50 | NUR ---
ADMISSION: REPORT RECEIVED FROM ATM SERVICER. PT TO UNIT AT 1700. UPON ASSESSMENT PT IS IN NO VISABLE DISTRESS, A/O,VSS. DENIES PAIN AND ABLE TO AMBULATE TO BED. PT ORIENTED TO ROOM, CALL LIGHT. TELE APPLIED AND BOX VERIFIED. FLUID BOLUS OF 1000ML STARTED. EKG COMPLETED,PLACED IN CHART. SEE EMAR FOR ADDITIONAL MEDS GIVEN. WILL CTM
--- NOTE | 2021-04-17 18:53 | NUR ---
SUMMARY: NO ACUTE CHANGE SINCE ADMIT, VSS. PT HAS YET TO VOID. TELE STABLE, ADMISSION CHARTING COMPLETE. WILL REPORT TO NOC RN.
[2021-04-18 04:27] LABS: BASOPHILS ABSOLUTE AUTO 0.02 K/mm3 (0.00-0.23); BASOPHILS PERCENT AUTO 0 % (0-2); EOSINOPHILS ABSOLUTE AUTO 0.01 K/mm3 (0.00-0.68); EOSINOPHILS PERCENT AUTO 0 % (0-6); Hematocrit 27.1 % (33.0-51.0); Hemoglobin 8.6 g/dL (11.5-16.0); IMMATURE GRAN PERCENT AUTO 1 % (0-1); LYMPHOCYTES ABSOLUTE AUTO 1.36 K/mm3 (0.84-5.20); LYMPHOCYTES PERCENT AUTO 19 % (21-46); MONOCYTES ABSOLUTE AUTO 0.71 K/mm3 (0.16-1.47); MONOCYTES PERCENT AUTO 10 % (4-13); Mean Corpuscular HGB 29.9 pg (26.0-34.0); Mean Corpuscular HGB Conc 31.7 g/dL (31.5-36.5); Mean Corpuscular Volume 94 fL (80-100); NEUTROPHILS ABSOLUTE AUTO 4.81 K/mm3 (1.96-9.15); NEUTROPHILS PERCENT AUTO 69 % (41-73); Platelet Count 60 K/mm3 (150-400); RDW Coefficient Variation 15.9 % (11.7-14.2); RDW Standard Deviation 54.5 fL (35.1-46.3); Red Blood Cell Count 2.88 M/mm3 (3.80-5.20); White Blood Cell Count 7.01 K/mm3 (4.00-11.30)
[2021-04-18 04:43] LABS: Albumin, Blood 3.3 g/dL (3.4-5.0); Bilirubin, Total 0.2 mg/dL (0.1-1.0); Bun/Creatinine Ratio 25.6 (12.0-20.0); Calcium, Blood 7.8 mg/dL (8.5-10.1); Creatinine, Blood 3.6 mg/dL (0.40-1.00); Globulin, Blood 3.2 g/dL (2.2-4.0); Potassium, Blood 5.8 mmol/L (3.5-5.5); Total Protein, Blood 6.5 g/dL (6.4-8.2)
--- NOTE | 2021-04-18 06:14 | NUR ---
SHIFT SUMMARY NO ACUTE CHANGES THIS SHIFT. PT A&OX3, FORGETFUL. SPO2>90% ON RA. TELEMETRY REAS SR, HR 60'S. PT AMBULATED W/ SBA TO BATHROOM TO VOID. NO BM THIS SHIFT. PT DENIED PAIN. FLUIDS INFUSED PER EMAR. PT WATCHED TV MOST OF NIGHT. CALL LIGHT IN REACH. WILL GIVE REPORT TO ONCOMING NURSE.
--- NOTE | 2021-04-18 13:55 | NUR ---
PT COMPLAINS OF NAUSEA THIS AFTERNOON AFTER LUNCH. ZOFRAN GIVEN WITH GOOD RELIEF. NO NEEDS AT THIS TIME. IN TO VISIT PATIENT. DESCRIBES BEING EXTREMELY CONFUSED WHEN SHE FIRST CAME IN AND HOW HER CONFUSION IS IMPROVING. PT STILL ASKING SOME REPETATIVE QUESTIONS, BUT ANSWERING CARE QUESTIONS APPROPRIATETLY. LR INFUSING AT THIS TIME. WILL CONTINUE TO MONITOR.
[2021-04-18 15:20] LABS: Bun/Creatinine Ratio 35.1 (12.0-20.0); Calcium, Blood 8.1 mg/dL (8.5-10.1); Creatinine, Blood 2.31 mg/dL (0.40-1.00); Potassium, Blood 6.1 mmol/L (3.5-5.5)
[2021-04-18 18:44] LABS: Glucose, Blood 96 mg/dL (70-99); Potassium, Blood 5.2 mmol/L (3.5-5.5)
--- NOTE | 2021-04-18 19:20 | NUR ---
SHIFT SUMMARY: PT REMAINS ALERT AND ORIENTED X3. ON TELE SHOWING SINUS WITH 1ST DEGREE BLOCK AND BBB. HR REMAINS 60-70'S. VITAL SIGNS REMAIN STABLE. ON ROOM AIR. URINATING WELL. UP TO BATHROOM WITH 1 PERSON ASSIST. BED ALARM ON PATIENT IS FORGETFUL AND GETS UP WITHOUT CALLING AT TIMES. EDUCATION FARM EQUIPMENT ENGINE MECHANIC LIGHT, FALL PREVENTION AND SAFETY REINFORCED THROUGHOUT THE SHIFT. DR. LOVE REQUESTING WE WATCH BOWEL FOR BOWEL MOVMENTS AND NOTE COLORING. PT DID NOT HAVE BOWEL MOVEMENT THIS SHIFT. INFORMATION PASSED ALONG TO NIGHT NURSE IN REPORT. AC BLOOD SUGARS IN PLACE. SODIUM BICARB/SODIUM CHLORIDE INFUSING AT THIS TIME. PT EATING WELL. ONE EPISODE OF NAUSEA THIS SHIFT, RELIEVED WITH ZOFRAN. REPORTED OFF TO ONCOMING RN.
[2021-04-18 20:27] LABS: Bun/Creatinine Ratio 35.9 (12.0-20.0); Calcium, Blood 8.8 mg/dL (8.5-10.1); Creatinine, Blood 2.09 mg/dL (0.40-1.00); Potassium, Blood 5.6 mmol/L (3.5-5.5)
--- NOTE | 2021-04-19 05:36 | NUR ---
SHIFT SUMMARY NO ACUTE CHANGES THIS SHIFT. PT ALERT, CONFUSED. SOMETIMES NOT ABLE TO TELL WHERE SHE IS. SP02>90% ONRA. TELEMETRY READS SR, HR 60'S-70'S. PT 1 PERSON ASSIST TO BSC TO VOID. INITIALLY WAS WALKING W/ FWWW TO BATHROOM, BUT C/O OF DIZZINESS/WEAKNESS. BSC AND FWW FOR SAFETY. DENIES PAIN. PARTIAL BED BATH/HAIR WASH DONE. SOMETIMES USES CALL LIGHT APPROPRIATELY. SLEPT OFF AND ON T/O NIGHT. CALL LIGHT IN REACH. WILL GIVE REPORT TO ONCOMING NURSE.
[2021-04-19 09:29] LABS: Bun/Creatinine Ratio 41.5 (12.0-20.0); Calcium, Blood 8.3 mg/dL (8.5-10.1); Creatinine, Blood 1.59 mg/dL (0.40-1.00)
--- NOTE | 2021-04-19 10:01 | NUR ---
PT ALERT AND ORIENTED X3. CONFUSION PRESENT, SEEMS TO HAVE INCREASED SINCE YESTERDAY DAY SHIFT. NEURO WNL. ANSWERING CARE QUESTIONS APPROPRIATELY. QUESTIONS ARE REPETATIVE AND PATIENT DOES NOT SEEM RECEPTIVE OF INFORMATION. ANXIOUS THIS MORNING, WORRYING ABOUT "PERSONAL FINANCES". TELE SHOWING SINUS WITH HR 60-70'S. DENIES CHEST PAIN/PRESSURE. VITAL SIGNS STABLE. ON ROOM AIR. BOWEL TONES PRESENT. PERIPHERAL PULSES STRONG. SBA WITH FWW FOR SAFETY. BED ALARM ON PATIENT IS CONFUSED AND IMPULSIVE. NO BOWEL MOVMENT THIS SHIFT. ATTENDS IN PLACE. PT VOIDING WELL. SKIN PALE/FRAGILE. BRUISING SCATTERED THROUGHOUT. LEFT AC IV SALINE LOCKED AND FLUSHING WELL. AC BLOOD SUGARS IN PLACE. MEDICAL STATUS WITH NO TELE. PT TRANSFERING TO ROOM 333. WILL REPORT OFF AND TRANSFER PATIENT VIA WHEELCHAIR.
--- NOTE | 2021-04-19 10:32 | NUR ---
PT TRANSPORTED TO MEDICAL FLOOR VIA WHEELCHAIR WITH ALL BELONGINGS. ATTEMPTED TO CALL SON JENNIFFER PER PATIENT REQUEST WITH NO ANSWER.
--- NOTE | 2021-04-19 17:57 | NUR ---
SHIFT SUMMARY- PT TRANSFERED TO UNIT FROM PCU. PT IS ALERT, PLESANT AND COOPERATIVE. SHE IS EATING AND DRINKING WELL. SHE IS RECIEVING IV ABX. HER BLOOD PRESSURE WAS ELEVATED THIS AFTERNOON. GOT ORDERS FOR PRN HYDRALAZINE, GIVEN, AND REASSESED WITH DESIRED EFFECT. SHE HAS INTERMITENT CONFUSION, AND HAS GOTTEN UP, SETTING OFF BED ALARM, AND HAS AMBULATED INTO NEIGHBORING PT ROOM SEVERAL TIMES. SHE WILL BE TRANSFERED INTO THE SCU THIS EVENING. HER BED IS IN THE LOW POSTION, CALL LIGHT WITHIN REACH, AND BED ALARM IS ON.
[2021-04-20 05:12] LABS: Bun/Creatinine Ratio 37.9 (12.0-20.0); Calcium, Blood 8.3 mg/dL (8.5-10.1); Creatinine, Blood 1.16 mg/dL (0.40-1.00); Potassium, Blood 4.8 mmol/L (3.5-5.5)
--- NOTE | 2021-04-20 05:50 | NUR ---
SHIFT SUMMARY- PT. A&O WITH SOME CONFUSION. C/O HEADACHE LAST NIGHT, MEDICATED PER EMAR WITH GOOD EFFECT. PT. IMPULSIVE AT TIMES, 1 ASSIST TO BATHROOM W/WALKER. FREQUENTLY REMINDED TO CALL FOR ASSISTANCE, PT. VERBALIZED UNDERSTANDING. BP HAS BEEN ELEVATED THIS SHIFT, MEDICATED W/SCHEDULED AND PRN MEDS PER EMAR. BP IMPROVED. PT. RESTED QUIETLY T/O THE NIGHT, NO APPARENT DISTRESS NOTED. CALL LIGHT WITHIN REACH, SIDE RAILS UPX2, AND BED ALARM ON. WILL CONT TO MONITOR.
--- NOTE | 2021-04-20 12:59 | NUR ---
DISCHARGE NOTE PT IV REMOVED BY THIS RN PER DOCUMENTATION. DC INSTRUCTIONS REVIEWED WITH PT WHO VERBALIZED UNDERSTANDING. PT DRESSED SELF IN HOME CLOTHING. PT BELONGINGS GATHERED. CAME TO PICK PT UP. PT REFUSED WHEELCHAIR AND WALKED OFF UNIT WITH AND RESPITE WORKER. PT HAS LEFT THE BUILDING IN PRIVATE VEHICLE WITH BELONGINGS PRESENT.
== END 2021-04-20 12:58 | disposition home or self-care (01) | DRG 683 ==
LOC: ER 11:22 → ERHOLD 14:28 → PCU 16:50 → MEDS 04-19 10:30
PROVIDERS: Emergency Medicine; Family Medicine; Nurse Practitioner Acute Care; ADMIT Internal Medicine
DX: N17.8 Other acute kidney failure (principal); N39.0 Urinary tract infection, site not specified; G93.49 Other encephalopathy; E87.5 Hyperkalemia; B96.1 Klebsiella pneumoniae [K. pneumoniae] as the cause of diseases classified elsewhere; E11.9 Type 2 diabetes mellitus without complications; I10 Essential (primary) hypertension; E03.9 Hypothyroidism, unspecified; E78.5 Hyperlipidemia, unspecified; D64.9 Anemia, unspecified; E86.0 Dehydration; D69.6 Thrombocytopenia, unspecified; S20.212A Contusion of left front wall of thorax, initial encounter; E87.8 Other disorders of electrolyte and fluid balance, not elsewhere classified; R31.29 Other microscopic hematuria; W01.0XXA Fall on same level from slipping, tripping and stumbling without subsequent striking against object, initial encounter; Y93.H2 Activity, gardening and landscaping; Z88.0 Allergy status to penicillin; Z88.8 Allergy status to other drugs, medicaments and biological substances; Z79.899 Other long term (current) drug therapy; Z79.4 Long term (current) use of insulin
CPT/HCPCS: 36415; 71045; 76770; 80048; 80053; 81001; 82550; 82570; 82803; 82947; 83690; 83735; 83880; 84100; 84132; 84300; 84550; 85025; 85610; 87077; 87086; 87186; 93005; 93010; 96374; 99284-25; A9270; J0360; J0610; J0696; J1815; J2405; J7030; J7120

== ENCOUNTER → 2021-04-28 | Outpatient (CLI) | payer OTHER ==
[~2021-04-28] MED LIST changes: +METFORMIN HCL1000 M7 PO; +PIOGLITAZONE HC15 MG PO; +Prinivil10 MG PO; +Vitamin B-121000 MCG PO
[2021-04-28 19:28] LABS: BASOPHILS ABSOLUTE AUTO 0.01 K/mm3 (0.00-0.23); BASOPHILS PERCENT AUTO 0 % (0-2); EOSINOPHILS ABSOLUTE AUTO 0.05 K/mm3 (0.00-0.68); EOSINOPHILS PERCENT AUTO 1 % (0-6); Hematocrit 26.9 % (33.0-51.0); Hemoglobin 8.6 g/dL (11.5-16.0); IMMATURE GRAN ABSOLUTE AUTO 0.04 K/mm3 (0.00-0.10); IMMATURE GRAN PERCENT AUTO 1 % (0-1); LYMPHOCYTES ABSOLUTE AUTO 1.14 K/mm3 (0.84-5.20); LYMPHOCYTES PERCENT AUTO 19 % (21-46); MONOCYTES ABSOLUTE AUTO 0.56 K/mm3 (0.16-1.47); MONOCYTES PERCENT AUTO 9 % (4-13); Mean Corpuscular HGB 30.1 pg (26.0-34.0); Mean Corpuscular Volume 94 fL (80-100); Mean Platelet Volume 12.6 fL (9.1-12.4); NEUTROPHILS ABSOLUTE AUTO 4.32 K/mm3 (1.96-9.15); NEUTROPHILS PERCENT AUTO 71 % (41-73); Platelet Count 79 K/mm3 (150-400); RDW Coefficient Variation 14.8 % (11.7-14.2); RDW Standard Deviation 49.7 fL (35.1-46.3); Red Blood Cell Count 2.86 M/mm3 (3.80-5.20); White Blood Cell Count 6.12 K/mm3 (4.00-11.30)
[2021-04-28 20:40] LABS: Anion Gap 2 mmol/L (6-16); Blood Urea Nitrogen 11 mg/dL (8-24); Bun/Creatinine Ratio 10.8 (12.0-20.0); CO2, Blood 27 mmol/L (21-32); Calcium, Blood 9.1 mg/dL (8.5-10.1); Chloride, Blood 110 mmol/L (98-108); Creatinine, Blood 1.02 mg/dL (0.40-1.00); Glomerular Filtration Rate 57 (60-); Glucose, Blood 111 mg/dL (70-99); Phosphorus, Blood 3.1 mg/dL (2.5-4.9); Potassium, Blood 4.7 mmol/L (3.5-5.5); Sodium, Blood 139 mmol/L (136-145)
[2021-04-29 16:55] LABS: Percent Saturation 17.4 % (15.0-50.0)
== END | disposition home or self-care (01) ==
LOC: LAB SHORT 15:55 → LAB 15:55
PROVIDERS: Internal Medicine
DX: E87.5 Hyperkalemia (principal); E53.8 Deficiency of other specified B group vitamins; I10 Essential (primary) hypertension; D50.9 Iron deficiency anemia, unspecified
CPT/HCPCS: 80069; 82607; 82728; 82746; 83540; 83550; 85025

== ENCOUNTER → 2022-01-15 | Outpatient (CLI) | payer OTHER ==
[2022-01-15 18:37] LABS: Albumin/Globulin Ratio 1.2 (0.8-1.8); Bilirubin, Total 0.3 mg/dL (0.1-1.0); Bun/Creatinine Ratio 24.3 (12.0-20.0); Calcium, Blood 8.4 mg/dL (8.5-10.1); Creatinine, Blood 1.03 mg/dL (0.40-1.00); Globulin, Blood 3.2 g/dL (2.2-4.0); Phosphorus, Blood 2.2 mg/dL (2.5-4.9); Potassium, Blood 5.2 mmol/L (3.5-5.5); Total Protein, Blood 7.2 g/dL (6.4-8.2)
[2022-01-17 08:10] LABS: FOLATE (FOLIC ACID), SERUM >20.0 ng/mL (>3.0)
== END | disposition home or self-care (01) ==
LOC: LAB SHORT 15:32 → LAB 15:32
PROVIDERS: Internal Medicine Hematology & Oncology
DX: E53.8 Deficiency of other specified B group vitamins (principal); D50.9 Iron deficiency anemia, unspecified; D69.6 Thrombocytopenia, unspecified
CPT/HCPCS: 80053; 82607; 82728; 82746; 83540; 83550; 84100

== ENCOUNTER 2022-12-13 02:03 | Inpatient (IN) | payer OTHER ==
[~2022-12-13] VITALS: Ht 167.6 cm; Wt 97.1 kg
[2022-12-13 02:20] LABS: Chloride (POC) 111 mmol/L (98-108); Glucose (ISTAT POC) 422 mg/dL (70-99); Hemoglobin (POC) 10.9 g/dL (12.0-16.0); Potassium (POC) 8.7 mmol/L (3.5-5.5); Sodium (POC) 127 mmol/L (135-148); Total CO2 (POC) 8 mmol/L (21-32)
[2022-12-13 02:23] LABS: BASOPHILS ABSOLUTE AUTO 0.01 K/mm3 (0.00-0.23); BASOPHILS PERCENT AUTO 0 % (0-2); EOSINOPHILS PERCENT AUTO 0 % (0-6); Hematocrit 31.1 % (33.0-51.0); Hemoglobin 9.7 g/dL (11.5-16.0); IMMATURE GRAN ABSOLUTE AUTO 0.19 K/mm3 (0.00-0.10); IMMATURE GRAN PERCENT AUTO 1 % (0-1); LYMPHOCYTES ABSOLUTE AUTO 0.55 K/mm3 (0.84-5.20); LYMPHOCYTES PERCENT AUTO 3 % (21-46); MONOCYTES ABSOLUTE AUTO 2.08 K/mm3 (0.16-1.47); MONOCYTES PERCENT AUTO 11 % (4-13); Mean Corpuscular HGB 30.1 pg (26.0-34.0); Mean Corpuscular HGB Conc 31.2 g/dL (31.5-36.5); Mean Corpuscular Volume 97 fL (80-100); NEUTROPHILS PERCENT AUTO 85 % (41-73); Platelet Count 76 K/mm3 (150-400); RDW Coefficient Variation 18.2 % (11.7-14.2); RDW Standard Deviation 65.4 fL (35.1-46.3); Red Blood Cell Count 3.22 M/mm3 (3.80-5.20); White Blood Cell Count 19.33 K/mm3 (4.00-11.30)
[2022-12-13 02:26] LABS: Mean Platelet Volume 13.3 fL (9.1-12.4)
[2022-12-13 02:34] LABS: Source, Urine Foley catheter
[2022-12-13 02:36] LABS: Blood, Urine 5+ (Neg); Glucose Qualitative, Urine Neg (Neg); Ketones, Urine 1+ (Neg); Leukocyte Esterase, Urine 3+ (Neg); Nitrite, Urine Neg (Neg); Protein, Urine 3+ (Neg); Specific Gravity, Urine 1.025 (1.003-1.022); Urobilinogen, Urine NORM (Normal)
[2022-12-13 02:41] LABS: Appearance, Urine Hazy (Clear); Bilirubin, Urine 3+ (Neg); Color, Urine Yellow (P-Yellow)
[2022-12-13 02:42] LABS: Free Thyroxine 0.74 ng/dL (0.70-1.60)
[2022-12-13 02:45] LABS: Albumin, Blood 4.1 g/dL (3.4-5.0); Bilirubin, Total 0.3 mg/dL (0.1-1.0); Calcium, Blood 8.5 mg/dL (8.5-10.1); Globulin, Blood 4.2 g/dL (2.2-4.0); Total Protein, Blood 8.3 g/dL (6.4-8.2)
[2022-12-13 02:49] LABS: Bacteria Many /hpf; Renal Epithelial Few /hpf (0-Rare); Squamous Epithelial Cells Mod /hpf (Few); Transitional Epithelial Cells Few /hpf (0-Rare); White Blood Cells, Urine TNTC /hpf (0-5)
[2022-12-13 02:50] LABS: Bun/Creatinine Ratio 14.2 (12.0-20.0); Creatinine, Blood 12.3 mg/dL (0.40-1.00); Potassium, Blood 8.5 mmol/L (3.5-5.5); Thyroid Stimulating Hormone 2.73 uIU/mL (0.360-4.800)
[2022-12-13 04:44] LABS: Hematocrit 25.1 % (33.0-51.0); Hemoglobin 8.1 g/dL (11.5-16.0); Mean Corpuscular HGB 30.3 pg (26.0-34.0); Mean Corpuscular HGB Conc 32.3 g/dL (31.5-36.5); Mean Corpuscular Volume 94 fL (80-100); Mean Platelet Volume 12.8 fL (9.1-12.4); Platelet Count 53 K/mm3 (150-400); RDW Coefficient Variation 18.2 % (11.7-14.2); RDW Standard Deviation 63.6 fL (35.1-46.3); Red Blood Cell Count 2.67 M/mm3 (3.80-5.20); White Blood Cell Count 11.06 K/mm3 (4.00-11.30)
[2022-12-13 04:58] LABS: Anti-Xa UFH, PHA Monitoring <0.10 IU/mL; International Normalized Ratio 1.12; Prothrombin Time Results 11.7 Sec (9.7-11.5)
[2022-12-13 05:42] LABS: Albumin, Blood 3.2 g/dL (3.4-5.0); Anion Gap 14 mmol/L (6-16); Blood Urea Nitrogen 158 mg/dL (8-24); Bun/Creatinine Ratio 15.5 (12.0-20.0); CO2, Blood 8 mmol/L (21-32); Calcium, Blood 8.1 mg/dL (8.5-10.1); Chloride, Blood 113 mmol/L (98-108); Glomerular Filtration Rate 4 (60-); Glucose, Blood 383 mg/dL (70-99); Phosphorus, Blood 9.2 mg/dL (2.5-4.9); Potassium, Blood 5.7 mmol/L (3.5-5.5); Sodium, Blood 135 mmol/L (136-145)
--- NOTE | 2022-12-13 06:30 | NUR ---
ADMIT/SHIFT SUMMARY ADMITTED AT 0405 VIA [place]. PT AWAKE AND ALERT. ORIENTED TO SELF ONLY. CRIES OUT "MOMMY" "DADDY" AND "HELP ME" FREQUENTLY. AGITATED AND ANXIOUS. OCCASIONALLY CALMS WITH REASSURANCE. FOLLOWS SOME SIMPLE COMMANDS. SPEECH IS CLEAR. ASSISTS WITH REPOSITIONING. NPO. INCONTINENT OF LIQUID RUST COLORED STOOL. STAPLETON PATENT AND DRAINING CLOUDY YELLOW URINE. CYST NOTED TO RIGHT LABIA. COCCYX SLIGHTLY RED ON ADMIT, BUT IMPROVED BY END OF SHIFT. POWERGLIDE PLACED TO RUE. BICARB GTT INFUSED PER ORDER. ONE AMP BICARB GIVEN IVP PER ORDER. MONITOR SHOWS AFIB, RATE [id number]. INCREASES TO 140s WITH AGITATION/ANXIETY. BP STABLE. AFEBRILE. O2 2L NC- UNABLE TO OBTAIN ADEQUATE SAT READING.
--- NOTE | 2022-12-13 08:00 | NUR ---
PT AWAKE, CONFUSED, AND AGITATED. PT CRYING OUT FOR "MOMMA!" PT MOVES ALL EXTREMITIES SPONTANEOUSLY AND FOLLOWS COMMANDS AT TIMES. PT PULLS ON LINES AND TUBES WHEN NOT RESTRAINED. ECG SHOWS ST WITH RATE 100'S. BP STABLE. LUNGS DIMINISHED IN THE BASES. SATS>90% ON 2 LITERS NASAL CANULA. NO NOTED SOB OR COUGH. NPO PT NOT FOLLOWING COMMANDS. ORAL CARE DONE-ORAL MUCOSA VERY DRY. PT BECAME VERY AGITATED AND STARTED SCREAMING "NO!" AND SHAKING HER HEAD BACK AND FORTH. PT INCONTINENT OF XLARGE AMOUNT FO BROWN, LIQUID STOOL. PARTIAL BATH AND LINEN CHANGE COMPLETED. PT [place] AREA WITH RED, YEAST-LIKE RASH. OVERALL SKIN IS DRY AND FLAKY, BUT NO NOTED BREAKDOWN. 1/2 NS WITH 100 MEQ BICARB INFUSING AT 100 CC/HR.
--- NOTE | 2022-12-13 08:30 | NUR ---
HR 160'S AFIB VS SVT. DR. CISNEROS AWARE. 12 LEAD ECG DONE.
--- NOTE | 2022-12-13 09:10 | NUR ---
DR. AUGUSTINE, DR. ZAMAN, AND DR. CISNEROS AT BEDSIDE. FULL UPDATE GIVEN. ZOLL PADS PLACED ON PT, THEN PT MED WITH ADENOSINE 6 MG IVP X 1 FOR SVT RAT 160'S. HR 90-110'S ST WITH FREQUENT PAC'S. ORDER GIVEN TO GIVE CARDIZEM 10 MG IVP X 1 IF HEART RATE 170'S SUSTAINED. CARDIZEM DRIP TO FOLLOW BOLUS.
--- NOTE | 2022-12-13 10:10 | NUR ---
HR 170'S. TROPONIN 10,010-DR. SAENZ IN TO SEE PT. FULL UPDATE GIVEN. DR. SAENZ AGREES WITH ORDER FOR DILTIAZEM BOLUS AND DRIP. PT GIVEN DILTIAZEM 10 MG IVP X 1 AND THEN DILTIAZEM DRIP INITIATED @ 5 MG/HR. HR 90'S. MAP TRENDING 60'S. ALSO, DR. SAENZ GIVEN DR. AUGUSTINE'S PHONE NUMBER-HE IS RECOMMENDING A CT OF THE HEAD.
[2022-12-13 11:13] LABS: Creatine Kinase MB 17.3 ng/mL (0.0-3.6); Creatine Kinase MB Index 12.8 (0.0-4.0)
--- NOTE | 2022-12-13 11:15 | NUR ---
HR 90'S SR WITH PAC'S ON DILTIAZEM DRIP @ 5 MG/HR. DR. SAENZ CONTACTED TO CONFIRM THAT HE WANTED BOTH DILTIAZEM AND AMIODARONE DRIP. CARDIZEM DRIP STOPPED HR 90'S-PER DR. SAENZ. AMIO BOLUS AND DRIP INITIATED-SEE EMAR. PT TO CT OF HEAD WITHOUT CONTRAST-VIA BED WITH RN AT BEDSIDE.
[2022-12-13 11:27] LABS: IMMATURE RETIC FRACTION 24.4 % (2.3-16.0); RETIC HGB EQUIVALENT 34.4 pg (28.20-36.60); RETICULOCYTE COUNT PERCENT 2.03 % (0.50-2.50)
[2022-12-13 11:41] LABS: Lactate Dehydrogenase (Ld),Bld 252 U/L (100-240)
[2022-12-13 11:42] LABS: Alanine Aminotransfer (ALT/SGP 17 U/L (12-78); Albumin, Blood 3.1 g/dL (3.4-5.0); Alk Phos 85 U/L (50-136); Aspartate Aminotrans (AST/SGOT 49 U/L (12-37); Bilirubin, Direct <0.1 mg/dL (0.0-0.3); Bilirubin, Indirect Unable to Calculate mg/dL (0.1-0.7); Bilirubin, Total 0.2 mg/dL (0.1-1.0); Globulin, Blood 3.2 g/dL (2.2-4.0); Total Protein, Blood 6.3 g/dL (6.4-8.2)
[2022-12-13 11:52] LABS: BASOPHILS ABSOLUTE AUTO 0.01 K/mm3 (0.00-0.23); BASOPHILS PERCENT AUTO 0 % (0-2); EOSINOPHILS PERCENT AUTO 0 % (0-6); Hematocrit 25.4 % (33.0-51.0); Hemoglobin 8.1 g/dL (11.5-16.0); IMMATURE GRAN PERCENT AUTO 1 % (0-1); LYMPHOCYTES ABSOLUTE AUTO 0.18 K/mm3 (0.84-5.20); LYMPHOCYTES PERCENT AUTO 2 % (21-46); MONOCYTES ABSOLUTE AUTO 1.37 K/mm3 (0.16-1.47); MONOCYTES PERCENT AUTO 12 % (4-13); Mean Corpuscular HGB 30.5 pg (26.0-34.0); Mean Corpuscular HGB Conc 31.9 g/dL (31.5-36.5); Mean Corpuscular Volume 96 fL (80-100); NEUTROPHILS ABSOLUTE AUTO 9.51 K/mm3 (1.96-9.15); NEUTROPHILS PERCENT AUTO 85 % (41-73); Platelet Count 55 K/mm3 (150-400); RDW Coefficient Variation 18.3 % (11.7-14.2); RDW Standard Deviation 63.9 fL (35.1-46.3); Red Blood Cell Count 2.66 M/mm3 (3.80-5.20); White Blood Cell Count 11.17 K/mm3 (4.00-11.30)
--- NOTE | 2022-12-13 13:00 | NUR ---
HR 130'S-150'S AFIB-DR. SAENZ AWARE. CARDIZEM DRIP RESUMED @ 5 MG/HR-PARAMETER FOR USE REVIEWED WITH DR. SAENZ. TROP 13,[id number].
--- NOTE | 2022-12-13 14:00 | NUR ---
ECHO COMPLETE. HR STILL 130'S AFIB. DILTIAZEM DRIP TITRATED UP TO 15 MG/HR. RENAL PANEL SENT. PT RESTING QUIETLY WHEN NOT DISTURBED.
[2022-12-13 14:56] LABS: Albumin, Blood 2.8 g/dL (3.4-5.0); Anion Gap 15 mmol/L (6-16); Blood Urea Nitrogen 146 mg/dL (8-24); Bun/Creatinine Ratio 20.7 (12.0-20.0); CO2, Blood 14 mmol/L (21-32); Calcium, Blood 7.8 mg/dL (8.5-10.1); Chloride, Blood 115 mmol/L (98-108); Creatinine, Blood 7.06 mg/dL (0.40-1.00); Glomerular Filtration Rate 6 (60-); Glucose, Blood 287 mg/dL (70-99); Phosphorus, Blood 8.2 mg/dL (2.5-4.9); Sodium, Blood 144 mmol/L (136-145)
--- NOTE | 2022-12-13 15:13 | NUR ---
PT GIVEN BED BATH. PT CRIES OUT WITH TOUCH AND REPOSITIONING. HR 90'S -130'S AFIB. MAP 70'S WITH AMIODARONE DRIP @ 1 MG/HR AND CARDIZEM @ 15 MG/HR. HEPARIN DRIP ON SB AND STAT H&H DRAWN RECTAL TUBE WITH BLOODY STOOL NOTED. DR. AREVALO UPDATED.
--- NOTE | 2022-12-13 15:25 | NUR ---
RENAL PANEL RESULTS REVIEWED WITH DR. SARAVIA. ORDER GIVEN TO CHANGE IVF TO 1/2 NS WITH 1 AMP BICARB @ 75 CC/HR.
[2022-12-13 15:30] LABS: Hematocrit 22.1 % (33.0-51.0); Hemoglobin 7.6 g/dL (11.5-16.0)
--- NOTE | 2022-12-13 15:47 | NUR ---
H&H 7.6.1-RESULTS PHONED TO DR. CISNEROS.
--- NOTE | 2022-12-13 16:00 | NUR ---
PT REMAINS CONFUSED, BUT SLIGHTLY LESS AGITATED THIS AFTERNOON. ECG CONTINUES AFIB WITH RATE 90-110'S. MAP TRENDING 60-65. AMIODARONE DRIP @ 1 MG/HR AND CARDIZEM @ 10 MG/HR. LUNGS COARSE TO UPPER LOBES AND DIMINISHED IN THE BASES. STILL NO NOTED COUGH OR SOB. PT TOLERATING SIPS OF WATER WITHOUT DIFFICULTY. IVF CHANGED TO 1/2 NS WITH 1 AMP OF BICARB @ 75 CC/HR. RECTAL TUBE WITH 500 CC RED LIQUID STOOL. STAPLETON OUTPUT LESS HAZY. PALLIATIVE CARE CONSULTED. PT SPOUSE UPDATED BY PEGGY SANABRIA. PT TO REMAIN FULL CODE. CONSENT GIVEN FOR PICC PLACEMENT.
--- NOTE | 2022-12-13 17:15 | NUR ---
PT SPOUSE AND SON @ BEDSIDE. FULL UPDATE GIVEN. PICC LINE PLACED-PT TOLERATED WELL. PT CONVERSING WITH FAMILY-SOMEWHAT NORMAL CONVERSATION. NO NOTED DISTRESS.
--- NOTE | 2022-12-13 18:22 | NUR ---
DR. GILL IN TO SEE PT. FROM HIS STANDPOINT, OK TO CONTINUE HEPARIN IF NEEDED FOR CARDIAC REASONS. PLAN TO KEEP HGB 9. DR. CISNEROS UPDATED AND [address] TRAN[address] SAENZ NOTIFIED OF GI BLEEDING AND TROPONIN 15,617. HEPARIN DRIP DISCONTINUED PER DR. SAENZ.
--- NOTE | 2022-12-13 19:45 | NUR ---
ASSUMED CARE. PT CONFUSED, CRYING OUT FOR "MOMMA". THINKS EVERY FEMALE THAT COMES INTO THE ROOM IS HER MOMMA. REPEATS HER NAME WHEN ASKED ORIENTATION QUESTIONS. GETS TEARFUL AT TIMES. STATES "I DON'T WANT TO ". SCARED. PROVIDED COMFORT TO CALM HER DOWN. CURRENT INFUSIONS CONSIST OF AMIODORONE 0.5MCQ, CARDIZEM 10MCQ, BICARB AT 75ML/HR, 1 UNIT OF BLOOD THAT WAS JUST STARTED, INCREASED RATE TO 100ML/HR, NO SIGNS OF REACTION. LS CLEAR, OCCATIONAL COUGH, 2LNC SATS >92%. SINUS WITH PVC RATE 90'S -100. BP SOFT WITH MAP >65. ABD DISTENDED, TENDER, BT ACTIVE. RECTAL TUBE WITH MARROON STOOL, LIQUID. CATH PATENT YELLOW URINE.
[2022-12-13 22:51] LABS: Hematocrit 23.2 % (33.0-51.0); Hemoglobin 7.9 g/dL (11.5-16.0)
--- NOTE | 2022-12-13 23:28 | NUR ---
HR JUMPED BACK UP TO THE 150'S. CARDIZEM RESTARTED AT 10MCQ. REPOSITIONED THE PATIENT. DENIES ANY PAIN.
--- NOTE | 2022-12-13 23:46 | NUR ---
HR IS RUNNING 130'S-140'S NOW AFIB. WITH MULTIFORM PVC'S.
--- NOTE | 2022-12-13 23:52 | NUR ---
CALLED DR. GILL IN REGARDS TO HGB LEVEL COMING BACK AT 7.9. SHE HAS NOT REACH THE 9 LEVEL PER ORDER. NO NEW ORDER WAS RECEIVED.
--- NOTE | 2022-12-14 00:42 | NUR ---
BP HAS DROPPED TO 70-90'S SBP, MAP >50-60. RUDY-SYNEPHRINE STARTED AT 20MCQ/HR. HR STILL 120-140'S AFIB.
[2022-12-14 04:29] LABS: Hematocrit 24.3 % (33.0-51.0); Hemoglobin 8.3 g/dL (11.5-16.0)
[2022-12-14 04:53] LABS: Albumin, Blood 2.6 g/dL (3.4-5.0); Anion Gap 9 mmol/L (6-16); Blood Urea Nitrogen 134 mg/dL (8-24); Bun/Creatinine Ratio 31.8 (12.0-20.0); CO2, Blood 18 mmol/L (21-32); CPK Creatine Kinase 76 U/L (26-193); Calcium, Blood 8.3 mg/dL (8.5-10.1); Chloride, Blood 116 mmol/L (98-108); Creatinine, Blood 4.21 mg/dL (0.40-1.00); Glomerular Filtration Rate 11 (60-); Glucose, Blood 181 mg/dL (70-99); Magnesium, Blood 2.2 mg/dL (1.6-2.4); Phosphorus, Blood 6.4 mg/dL (2.5-4.9); Potassium, Blood 3.5 mmol/L (3.5-5.5); Sodium, Blood 143 mmol/L (136-145); Uric Acid, Blood 12.8 mg/dL (2.6-6.0)
--- NOTE | 2022-12-14 05:46 | NUR ---
SHIFT SUMMARY: AOX1, HAS BECOME MORE AWARE THIS AM AND ABLE TO HOLD CONVERSATION. STILL CALLS OUT FOR "MOMMA". CONTINUES TO REMAIN ON 2L NC MAINTAINING SATS 92-94%. CARDIZEM 10MCQ WAS OFF FOR ESTIMATED 2 HOURS BEFORE THE PATIENT HAS RUN OF SVT AND CONVERTED BACK INTO AFIB. CARDIZEM IS AT 15MCQ. AMIODORONE REMAINS AT 0.5MCQ. RUDY-SYNEPHRINE WAS STARTED FOR DROP IN MAP RATE IS AT 20MCQ. BICARB CONTINUES AT 75ML/HR. SHE GOT 1 UNIT OF PRBC RAISING HER HGB TO 7.9, DR. GILL WAS INFORMED OF RESULTS. HR HAS REMAINED AFIB WITH RVR 110-140'S. RECTAL TUBE HAD 275 OF MARROON STOOL. STAPLETON WITH 825 OUT. LABS HAVE IMPROVED THIS AM.
--- NOTE | 2022-12-14 07:00 | NUR ---
ASSUME CARE: I have assumed care of this patient.
[2022-12-14 08:37] LABS: Platelet Count 35 K/mm3 (150-400)
[2022-12-14 15:37] LABS: Hematocrit 24.7 % (33.0-51.0); Hemoglobin 8.5 g/dL (11.5-16.0); Mean Corpuscular HGB 30.8 pg (26.0-34.0); Mean Corpuscular HGB Conc 34.4 g/dL (31.5-36.5); RDW Coefficient Variation 17.4 % (11.7-14.2); Red Blood Cell Count 2.76 M/mm3 (3.80-5.20); White Blood Cell Count 10.54 K/mm3 (4.00-11.30)
[2022-12-14 15:44] LABS: Mean Corpuscular Volume 90 fL (80-100); Platelet Count 33 K/mm3 (150-400)
--- NOTE | 2022-12-14 18:44 | NUR ---
SHIFT SUMMARY: NEURO: bedside swallow performed successfully this morning. Pt transitioned to PO medications. She is alert and plesantly confused; oriented to self, family, year, and location. She requires frequent reorientation. CARDIAC: IV medications titrated off. HR afib between 60-80s, pressures stable. RESPIRATORY: clear/dim on RA GI/: rectal tube removed after 500mls liquid stool out due to complaints of pain. Stool sample sent to lab. 24-hour urine started at 0930 this morning. SKIN: no new breakdown PSYCH/SOCIAL: family and SO at bedside and supportive throughout the day. Pt intermittantly tearful.
[2022-12-14 19:06] LABS: Adenovirus F 40/41 Not Detected (NOT DETECT); Astrovirus Not Detected (NOT DETECT); Campylobacter Sp Not Detected (NOT DETECT); Cryptosporidium Not Detected (NOT DETECT); Cyclospora Cayetanensis Not Detected (NOT DETECT); E. Coli O157 Not Detected (NOT DETECT); Entamoeba Histolytica Not Detected (NOT DETECT); Enteroaggregative E. coli-EAEC Not Detected (NOT DETECT); Enteropathogenic E. coli-EPEC Not Detected (NOT DETECT); Enterotoxigenic E. coli-ETEC Not Detected (NOT DETECT); Giardia Lamblia Not Detected (NOT DETECT); Norovirus GI/GII Not Detected (NOT DETECT); Plesiomonas Shigelloides Not Detected (NOT DETECT); Rotavirus A Not Detected (NOT DETECT); Salmonella Sp Not Detected (NOT DETECT); Sapovirus Not Detected (NOT DETECT); Shiga Toxin-prod E. coli-STEC Not Detected (NOT DETECT); Shigella/Enteroin E. coli-EIEC Not Detected (NOT DETECT); Vibrio Cholerae Not Detected (NOT DETECT); Vibrio Sp Not Detected (NOT DETECT); Yersinia Enterocolitica Not Detected (NOT DETECT)
--- NOTE | 2022-12-14 20:00 | NUR ---
ASSUMPTION OF CARE ASSUMED CARE OF PATIENT @ 1915. PATIENT DISORIENTED. TEARFUL; LABILE MOOD. REQUIRES FREQUENT REORIENTATION. AFIB ON MONITOR, RATE CONTROLLED. BP STABLE. AFEBRILE. ROOM AIR. STAPLETON CATH CARE PERFORMED AND REPOSITIONED IN BED. CALL LIGHT WITHIN REACH.
[2022-12-14 22:17] LABS: BASOPHILS ABSOLUTE AUTO 0.02 K/mm3 (0.00-0.23); BASOPHILS PERCENT AUTO 0 % (0-2); EOSINOPHILS PERCENT AUTO 0 % (0-6); Hematocrit 25.1 % (33.0-51.0); Hemoglobin 8.5 g/dL (11.5-16.0); IMMATURE GRAN ABSOLUTE AUTO 0.06 K/mm3 (0.00-0.10); IMMATURE GRAN PERCENT AUTO 1 % (0-1); LYMPHOCYTES ABSOLUTE AUTO 0.71 K/mm3 (0.84-5.20); LYMPHOCYTES PERCENT AUTO 7 % (21-46); MONOCYTES ABSOLUTE AUTO 1.45 K/mm3 (0.16-1.47); MONOCYTES PERCENT AUTO 14 % (4-13); Mean Corpuscular HGB 30.7 pg (26.0-34.0); Mean Corpuscular HGB Conc 33.9 g/dL (31.5-36.5); Mean Corpuscular Volume 91 fL (80-100); NEUTROPHILS ABSOLUTE AUTO 8.22 K/mm3 (1.96-9.15); NEUTROPHILS PERCENT AUTO 79 % (41-73); RDW Coefficient Variation 17.4 % (11.7-14.2); Red Blood Cell Count 2.77 M/mm3 (3.80-5.20); White Blood Cell Count 10.46 K/mm3 (4.00-11.30)
[2022-12-14 22:25] LABS: Platelet Count 32 K/mm3 (150-400)
[2022-12-15 04:27] LABS: Hematocrit 23.6 % (33.0-51.0); Hemoglobin 7.8 g/dL (11.5-16.0); Mean Corpuscular HGB 30.5 pg (26.0-34.0); Mean Corpuscular HGB Conc 33.1 g/dL (31.5-36.5); Mean Corpuscular Volume 92 fL (80-100); RDW Coefficient Variation 17.7 % (11.7-14.2); RDW Standard Deviation 59.7 fL (35.1-46.3); Red Blood Cell Count 2.56 M/mm3 (3.80-5.20); White Blood Cell Count 8.44 K/mm3 (4.00-11.30)
[2022-12-15 04:45] LABS: Albumin, Blood 2.3 g/dL (3.4-5.0); Anion Gap 5 mmol/L (6-16); Blood Urea Nitrogen 90 mg/dL (8-24); Bun/Creatinine Ratio 50.8 (12.0-20.0); CO2, Blood 24 mmol/L (21-32); Chloride, Blood 112 mmol/L (98-108); Creatinine, Blood 1.77 mg/dL (0.40-1.00); Glomerular Filtration Rate 31 (60-); Glucose, Blood 201 mg/dL (70-99); Magnesium, Blood 1.9 mg/dL (1.6-2.4); Phosphorus, Blood 4.1 mg/dL (2.5-4.9); Potassium, Blood 3.6 mmol/L (3.5-5.5); Sodium, Blood 141 mmol/L (136-145); Uric Acid, Blood 11.9 mg/dL (2.6-6.0)
[2022-12-15 05:09] LABS: Platelet Count 36 K/mm3 (150-400)
--- NOTE | 2022-12-15 06:49 | NUR ---
SHIFT SUMMARY OVERNIGHT, PATIENT CONTINUES TO BE CONFUSED; MORE CONSISTENTLY ALERT TO SELF AND PLACE. FOLLOWS COMMANDS APPROPRIATELY. SALDANA. RA WHEN AWAKE, BUT REQUIRES 2L WHEN SLEEPING. AFIB AT THE BEGINNING OF SHIFT, BUT CONVERTED TO SR WITH FREQUENT PVCS. HR 60-80S. AM EKG COMPLETED. SBP 100-140S. RUDY ON STANDBY, PATIENT ABLE TO MAINTAIN MAP >60 PER ORDER. AFEBRILE. X2 LOOSE INCONTINENT BOWEL MOVEMENTS, DARK GREEN/BROWN. NO RIVAS BLEEDING NOTED. STAPLETON CATH WITH PATENT, 700CC OUT. 24 HOUR URINE COLLECTION WILL BE COMPLETED AT [address] SARAVIA AT BEDSIDE THIS AM; BICARB GTT DISCONTINUED PER ORDERS AND TRANSITIONED TO NS @ 50CC/HR. PLATELETS 32-36 ON SERIAL LABS; DR NERI NOTIFIED WITH NO NEW ORDERS. PT AWAKE, COMFORTABLE AT THIS TIME. CALL LIGHT WITHIN REACH.
--- NOTE | 2022-12-15 08:51 | NUR ---
DR. ECHEVERRIA ROUNDED AND GAVE ORDERS TO HOLD UNIT OF PRBC FOR NOW AND CHECK H/H AT NOON.
[2022-12-15 10:47] LABS: Protein, Urine Quantitative 29.8 mg/dL (0.0-11.9)
--- NOTE | 2022-12-15 11:29 | NUR ---
REASSESSMENT PT CONTINUES TO ALERT, BUT ORIENTED TO PERSON AND PLACE ONLY. SHE IS FORGETFUL, TALKING TO THIS NURSE ABOUT EVENTS THAT TOOK PLACE THIS MORNING, BUT DESCRIBES IT TO THIS NURSE IF IT WAS A DIFFERENT NURSE THAT WAS WITH HER THEN. LUGNS ARE CLEAR, RA, SR WITH PVC. TOELRATING CL LIQUIDS. 1 BM WITH SOME BRIGHT RED RIGHT ON TOP. PT GOT UP TO THE SHOWER AND THEN TO THE CHAIR. STAPLETON DRAINING. PT CALLED HER AND SON THIS MORNING. CONTINUE TO MONITOR.
[2022-12-15 11:45] LABS: Hematocrit 27.2 % (33.0-51.0); Hemoglobin 8.8 g/dL (11.5-16.0)
--- NOTE | 2022-12-15 17:29 | NUR ---
SHIFT SUMMARY PT HAS CONTINUED TO DO WELL THROUGHOUT THE SHIFT. SHE SAT UP IN THE CHAIR FOR THE MAJORITY OF THE DAY. SHE STILL HAS SOME CONFUSION AND IS ONLY ORIENTED TO PERSON AND PLACE. VERY FORGETFUL. LUNGS ARE CLEAR, RA. SR. DRINKING FLUIDS, NOT EATING A LOT OF SOLIDS BECAUSE SHE SAYS THEY DON'T SOUND GOOD TO HER STOMACH. STAPLETON DRAINING CL YELLOW URINE. PT'S VISITED AND WAS UPDATED.
--- NOTE | 2022-12-15 20:00 | NUR ---
ASSUMPTION OF CARE AT CHANGE OF SHIFT, PATIENT ASSISTED TO BSC FOR SMALL BROWN BM. OF NOTE, BM HAD A SCANT AREA OF RED JELLY-LIKE STOOL WELL. ALERT, ORIENTED X2-3. RA. HYPERTENSIVE. ASSISTED BACK TO BED. CATH CARE PERFORMED. ASSISTED WITH REPOSISION. MEDICATED FOR GENERALIZED PAIN, SEE MAR. CALL LIGHT WITHIN REACH.
[2022-12-16 04:40] LABS: HBSAG SCREEN Negative (Negative); HCV AB Non Reactive (Non Reactive); HEP A AB, IGM Negative (Negative); HEP B CORE AB, IGM Negative (Negative)
[2022-12-16 05:43] LABS: BASOPHILS ABSOLUTE AUTO 0.01 K/mm3 (0.00-0.23); BASOPHILS PERCENT AUTO 0 % (0-2); EOSINOPHILS ABSOLUTE AUTO 0.03 K/mm3 (0.00-0.68); EOSINOPHILS PERCENT AUTO 0 % (0-6); Hematocrit 27.6 % (33.0-51.0); IMMATURE GRAN ABSOLUTE AUTO 0.14 K/mm3 (0.00-0.10); IMMATURE GRAN PERCENT AUTO 2 % (0-1); LYMPHOCYTES ABSOLUTE AUTO 0.74 K/mm3 (0.84-5.20); LYMPHOCYTES PERCENT AUTO 10 % (21-46); MONOCYTES ABSOLUTE AUTO 0.68 K/mm3 (0.16-1.47); MONOCYTES PERCENT AUTO 9 % (4-13); Mean Corpuscular HGB 30.5 pg (26.0-34.0); Mean Corpuscular HGB Conc 32.6 g/dL (31.5-36.5); Mean Corpuscular Volume 94 fL (80-100); Mean Platelet Volume 11.7 fL (9.1-12.4); NEUTROPHILS PERCENT AUTO 80 % (41-73); RDW Coefficient Variation 16.7 % (11.7-14.2); RDW Standard Deviation 56.9 fL (35.1-46.3); Red Blood Cell Count 2.95 M/mm3 (3.80-5.20)
[2022-12-16 05:52] LABS: Platelet Count 40 K/mm3 (150-400)
[2022-12-16 06:01] LABS: Albumin, Blood 2.8 g/dL (3.4-5.0); Anion Gap 4 mmol/L (6-16); Blood Urea Nitrogen 60 mg/dL (8-24); Bun/Creatinine Ratio 52.6 (12.0-20.0); CO2, Blood 25 mmol/L (21-32); Calcium, Blood 8.3 mg/dL (8.5-10.1); Chloride, Blood 110 mmol/L (98-108); Creatinine, Blood 1.14 mg/dL (0.40-1.00); Glomerular Filtration Rate 52 (60-); Glucose, Blood 234 mg/dL (70-99); Magnesium, Blood 1.9 mg/dL (1.6-2.4); Potassium, Blood 3.6 mmol/L (3.5-5.5); Sodium, Blood 139 mmol/L (136-145)
--- NOTE | 2022-12-16 07:53 | NUR ---
SHIFT SUMMARY OVERNIGHT, PATIENT ALERT X2-3. STILL INTERMITTENTLY TEARFUL, LABILE, DEFENSIVE WITH STAFF. THIS MORNING, PATIENT COOPERATIVE AND PLEASANT. SR C PACS AND PVCS OVERNIGHT. HYPERTENSIVE. ROOM AIR. DIARRHEA OVERNIGHT; SEVERAL SMALL-MEDIUM LOOSE, JELLY-LIKE STOOLS, MOSTLY BROWN IN COLOR WITH SCANT AREAS OF MAROON/REDNESS. PATIENT FRUSTRATED WITH DIARRHEA. EDUCATED PT ON PURPOSE OF BANANA FLAKES, WHICH SHE HAS BEEN REFUSING, AND PATIENT BECAME TEARFUL AND IRRATE, STATING "I DONT WANT THAT BECAUSE ITS AN HERB." ADEQUATE URINE OUTPUT VIA STAPLETON CATH. ROUNDED WITH DR SARAVIA THIS MORNING; MIVF DISCONTINUED PER ORDER. CALL LIGHT WITHIN REACH.
[2022-12-16] MEDS ORDERED: GLIP5 PO (10:04)
[2022-12-16] MEDS ORDERED: PIOG15 PO (10:09)
[2022-12-16] MEDS ORDERED: LISI20 PO (10:09)
--- NOTE | 2022-12-16 11:55 | NUR ---
PT RESTING IN BED. A/O TO PERSON, PLACE, AND EVENTS. PT IS ABLE TO USE CALL LIGHT APPROPRIATELY. 1 PERSON MINIMAL ASSIST WITH LINES AND CORDS OOB. USES FWW. PT HAD A MED LOOSE BM THIS AM THAT DID NOT HAVE ANY RED IN IT. DECLINES BANANA FLAKES THIS AM. PT IS ADAMANT THAT SHE WILL DO HER OWN PERICARE. BP IS IMPROVING AFTER AM MEDS AND WAS ALSO STARTED ON NORVASC. NO SIGN OF DISTRESS.
[2022-12-16 12:11] LABS: IMMUNOGLOBULIN A, QN, SERUM 119 mg/dL (87-352); IMMUNOGLOBULIN G, QN, SERUM 1122 mg/dL (586-1602); IMMUNOGLOBULIN M, QN, SERUM 68 mg/dL (26-217)
--- NOTE | 2022-12-16 16:13 | NUR ---
PT ARRIVED ON THE FLOOR AT 1530 STABLE FROM ICU. ONEIDA KHORUY RECEIVED REPORT FROM MOTOR AND GENERATOR BRUSH MAKER. PT ARRIVED TO THIS FLOOR WITH ALL OF HER BELONGINGS. TWO PERSON SKIN CHECK PERFORMED WITH ONEIDA KHOURY.
[2022-12-17 05:49] LABS: BASOPHILS ABSOLUTE AUTO 0.01 K/mm3 (0.00-0.23); BASOPHILS PERCENT AUTO 0 % (0-2); EOSINOPHILS ABSOLUTE AUTO 0.04 K/mm3 (0.00-0.68); EOSINOPHILS PERCENT AUTO 1 % (0-6); Hematocrit 27.2 % (33.0-51.0); Hemoglobin 8.7 g/dL (11.5-16.0); IMMATURE GRAN ABSOLUTE AUTO 0.31 K/mm3 (0.00-0.10); IMMATURE GRAN PERCENT AUTO 5 % (0-1); LYMPHOCYTES ABSOLUTE AUTO 0.65 K/mm3 (0.84-5.20); LYMPHOCYTES PERCENT AUTO 10 % (21-46); MONOCYTES ABSOLUTE AUTO 0.74 K/mm3 (0.16-1.47); MONOCYTES PERCENT AUTO 11 % (4-13); Mean Corpuscular HGB 29.7 pg (26.0-34.0); Mean Corpuscular Volume 93 fL (80-100); Mean Platelet Volume 11.5 fL (9.1-12.4); NEUTROPHILS ABSOLUTE AUTO 5.01 K/mm3 (1.96-9.15); NEUTROPHILS PERCENT AUTO 74 % (41-73); RDW Standard Deviation 54.3 fL (35.1-46.3); Red Blood Cell Count 2.93 M/mm3 (3.80-5.20); White Blood Cell Count 6.76 K/mm3 (4.00-11.30)
[2022-12-17 06:42] LABS: Platelet Count 47 K/mm3 (150-400)
--- NOTE | 2022-12-17 08:00 | NUR ---
CHIP TESTER SUMMAR PT A/OX3. NO ACUTE CHANGES. PT UPBEAT AND CHATTY WHILE AT BEDSIDE; BUT QUITE CONFUSED. GAVE METAMUCIL WITH PM MEDS--PT EDUCATION ON FIBER SUPPLEMENT TO HELP FIRM STOOL. PT SBP IN THE 160'S; HYDRALAZINE COVERAGE ORDERED F/>170. PT REPORTING HAVING URINE OUTPUT AND STOOLS ARE FIRMING. THIS NURSE DID NOT OBSERVE EITHER. PUT HAT IN TOILET AND REQ TO OBSERVE OUTPUT. PT MAY NOT BE ABLE TO ACCURATELY REPORT OUTPUT. CALL LIGHT ACCESSIBLE.
[2022-12-17 11:10] LABS: M-SPIKE, % Not Observed % (Not Observed); PROTEIN,TOTAL,URINE 15.5 mg/dL (Not Estab.)
[2022-12-17 13:10] LABS: ANTIMYELOPEROXIDASE (MPO) ABS <0.2 units (0.0-0.9); ANTIPROTEINASE 3 (PR-3) ABS <0.2 units (0.0-0.9); ATYPICAL PANCA <1:20 titer (Neg:<1:20); CYTOPLASMIC (C-ANCA) <1:20 titer (Neg:<1:20); PERINUCLEAR (P-ANCA) <1:20 titer (Neg:<1:20)
--- NOTE | 2022-12-17 16:16 | NUR ---
PT AAOX3 TODAY. FORGETFUL AND HAS FLIGHTS OF IDEAS. DOES NOT UNDERSTAND WHY SHE IS HERE. CALLS APPROPRIATELY. SBA. NO PAIN THIS SHIFT.
[2022-12-17 17:10] LABS: Bun/Creatinine Ratio 31.9 (12.0-20.0); Calcium, Blood 8.4 mg/dL (8.5-10.1); Creatinine, Blood 0.91 mg/dL (0.40-1.00); Potassium, Blood 3.8 mmol/L (3.5-5.5)
[2022-12-17 17:11] LABS: Albumin, Blood 2.9 g/dL (3.4-5.0); Albumin/Globulin Ratio 0.9 (0.8-1.8); Bilirubin, Total 0.3 mg/dL (0.1-1.0); Globulin, Blood 3.2 g/dL (2.2-4.0); Magnesium, Blood 1.4 mg/dL (1.6-2.4); Phosphorus, Blood 2.1 mg/dL (2.5-4.9); Total Protein, Blood 6.1 g/dL (6.4-8.2)
--- NOTE | 2022-12-17 22:35 | NUR ---
NURSE NOTE--HS BLOOD SUGAR 191
[2022-12-18 05:38] LABS: Hematocrit 26.3 % (33.0-51.0); Hemoglobin 8.6 g/dL (11.5-16.0); Mean Corpuscular HGB 29.9 pg (26.0-34.0); Mean Corpuscular HGB Conc 32.7 g/dL (31.5-36.5); Mean Corpuscular Volume 91 fL (80-100); Mean Platelet Volume 10.6 fL (9.1-12.4); RDW Coefficient Variation 15.6 % (11.7-14.2); RDW Standard Deviation 51.6 fL (35.1-46.3); Red Blood Cell Count 2.88 M/mm3 (3.80-5.20); White Blood Cell Count 6.16 K/mm3 (4.00-11.30)
[2022-12-18 05:48] LABS: Platelet Count 44 K/mm3 (150-400)
--- NOTE | 2022-12-18 06:27 | NUR ---
TITLE COORDINATOR SUMMARY NO ACTUE EVENTS. PT REQUESTED SLEEP AID. CALL TO MARKETING CONTENT COORDINATOR DR--NEW ORDER FOR 1X 0.5MG ATIVAN. MED W/O GOOD EFFECT. PT WAS WAKEFUL T/O THE NIGHT. PT UP TO BATHROOM INDEPENDENTLY. CALL LIGHT ACCESSIBLE.
[2022-12-18 06:39] LABS: Albumin, Blood 2.8 g/dL (3.4-5.0); Albumin/Globulin Ratio 0.8 (0.8-1.8); Bilirubin, Total 0.4 mg/dL (0.1-1.0); Calcium, Blood 8.1 mg/dL (8.5-10.1); Creatinine, Blood 0.84 mg/dL (0.40-1.00); Globulin, Blood 3.3 g/dL (2.2-4.0); Magnesium, Blood 1.3 mg/dL (1.6-2.4); Phosphorus, Blood 2.5 mg/dL (2.5-4.9); Potassium, Blood 3.7 mmol/L (3.5-5.5); Total Protein, Blood 6.1 g/dL (6.4-8.2)
[2022-12-18] MEDS ORDERED: PROBIOTIC1 EA13 PO (12:03)
[2022-12-18] MEDS ORDERED: METO50 PO (12:04)
[2022-12-18] MEDS ORDERED: AMLO10 PO (13:39)
[2022-12-18] MEDS ORDERED: Amiodarone HCl200 MG PO (13:39)
--- NOTE | 2022-12-18 14:51 | NUR ---
DISCHARGE- PT DICHARGED TO HOME. SPOUSE AT BEDSIDE. DISCHARGE EDUCATION PROVIDED TO PT. VISITED AND FURTHER EXPLAINED THE IMPORTANCE OF FOLLOWING UP WITH HER PCP. ATTEMPTED TO MAKE AN APPOINTMENT FOR HER BUT STAFF WAS ON LUNCH BREAK. STOCK MIXER STATED THAT SHE WOULD HAVE THE STAFF CALL THE PT TO SCHEDULE APPOINTMENT. I AGAIN STRESSED THE IMPORTANCE OF CALLING THE PT BACK. PT IS ALERT AND ORIENTED X4. TREATED BLOOD SUGARS PER EMAR.
[2022-12-19 13:10] LABS: HEPARIN INDUCED PLATELET AB 0.161 OD (0.000-0.400)
== END 2022-12-18 14:12 | disposition home or self-care (01) | DRG 871 ==
LOC: ER 02:03 → ICUE 03:19 → ICUW 03:19 → MEDS 03:19 → ICUE 04:05 → MEDS 12-16 14:57
PROVIDERS: Emergency Medicine; Family Medicine; Hospitalist; Internal Medicine Cardiovascular Disease; Internal Medicine Nephrology; Student in an Organized Health Care Education/Training Program; ADMIT Internal Medicine
PROC: 02HV33Z Insertion of Infusion Device into Superior Vena Cava, Percutaneous Approach (ICD-10-PCS; principal; 2022-12-13)
PROC: 30233N1 Transfusion of Nonautologous Red Blood Cells into Peripheral Vein, Percutaneous Approach (ICD-10-PCS; 2022-12-13)
PROC: 30233K1 Transfusion of Nonautologous Frozen Plasma into Peripheral Vein, Percutaneous Approach (ICD-10-PCS; 2022-12-13)
PROC: 3E03329 Introduction of Other Anti-infective into Peripheral Vein, Percutaneous Approach (ICD-10-PCS; 2022-12-13)
PROC: 0T9B70Z Drainage of Bladder with Drainage Device, Via Natural or Artificial Opening (ICD-10-PCS; 2022-12-13)
DX: A41.4 Sepsis due to anaerobes (principal); G92.8 Other toxic encephalopathy; N17.0 Acute kidney failure with tubular necrosis; I21.A1 Myocardial infarction type 2; D62 Acute posthemorrhagic anemia; E87.20 Acidosis, unspecified; N39.0 Urinary tract infection, site not specified; I47.1 Supraventricular tachycardia; K92.2 Gastrointestinal hemorrhage, unspecified; E87.1 Hypo-osmolality and hyponatremia; I13.0 Hypertensive heart and chronic kidney disease with heart failure and stage 1 through stage 4 chronic kidney disease, or unspecified chronic kidney disease; Z68.41 Body mass index [BMI] 40.0-44.9, adult; R65.20 Severe sepsis without septic shock; D69.6 Thrombocytopenia, unspecified; I48.91 Unspecified atrial fibrillation; E87.5 Hyperkalemia; K90.0 Celiac disease; R93.89 Abnormal findings on diagnostic imaging of other specified body structures; R94.31 Abnormal electrocardiogram [ECG] [EKG]; E11.65 Type 2 diabetes mellitus with hyperglycemia; I50.9 Heart failure, unspecified; J45.909 Unspecified asthma, uncomplicated; N18.2 Chronic kidney disease, stage 2 (mild); I16.0 Hypertensive urgency; I95.9 Hypotension, unspecified; E11.22 Type 2 diabetes mellitus with diabetic chronic kidney disease; E83.42 Hypomagnesemia; E03.9 Hypothyroidism, unspecified; E86.9 Volume depletion, unspecified; E83.39 Other disorders of phosphorus metabolism; E88.09 Other disorders of plasma-protein metabolism, not elsewhere classified; E66.9 Obesity, unspecified; E78.5 Hyperlipidemia, unspecified; K21.9 Gastro-esophageal reflux disease without esophagitis; D63.1 Anemia in chronic kidney disease; Z88.0 Allergy status to penicillin; Z88.8 Allergy status to other drugs, medicaments and biological substances; Z79.899 Other long term (current) drug therapy; Z79.84 Long term (current) use of oral hypoglycemic drugs; Z79.811 Long term (current) use of aromatase inhibitors; Z79.51 Long term (current) use of inhaled steroids; Z79.02 Long term (current) use of antithrombotics/antiplatelets; Z98.890 Other specified postprocedural states
CPT/HCPCS: 36415; 36430; 36569; 51702; 70450; 71045; 74176; 76770; 80047; 80053; 80069; 80074; 80076; 81001; 82272; 82550; 82553; 82607; 82746; 82947; 83010; 83036; 83516; 83520; 83605; 83615; 83735; 84100; 84156; 84166; 84439; 84443; 84484; 84550; 85014; 85018; 85025; 85027; 85045; 85049; 85060; 85520; 85610; 85730; 86022; 86037; 86038; 86334; 86335; 86850; 86900; 86901; 86923; 87040; 87077; 87086; 87186; 87507; 93005; 93010; 93306; 96365-59; 96367-59; 96368; 96375-59; 97116; 97162; 97166; 97530; 99285-25; A9270; C1751; C9113; J0153; J0282; J0360; J0610; J0696; J0881; J1644; J1815; J2370; J3010; J3475; J7030; J7040; J7050; J7060; J7070; J7799; P9016; P9059

== ENCOUNTER → 2022-12-25 | Outpatient (CLI) | payer OTHER ==
[~2022-12-25] MED LIST changes: +AMLO10 PO; +Amiodarone HCl200 MG PO; +GLIP5 PO; +PIOG15 PO; +PROBIOTIC1 EA13 PO
[2022-12-28 10:28] LABS: Albumin/Globulin Ratio 1.1 (0.8-1.8); Bilirubin, Total 0.4 mg/dL (0.1-1.0); Bun/Creatinine Ratio 18.4 (12.0-20.0); Calcium, Blood 8.9 mg/dL (8.5-10.1); Creatinine, Blood 0.82 mg/dL (0.40-1.00); Globulin, Blood 3.6 g/dL (2.2-4.0); Total Protein, Blood 7.6 g/dL (6.4-8.2)
== END | disposition home or self-care (01) ==
LOC: LAB SHORT 16:35
PROVIDERS: Student in an Organized Health Care Education/Training Program
DX: N17.9 Acute kidney failure, unspecified (principal)
CPT/HCPCS: 80053

== ENCOUNTER 2023-04-08 16:08 | Inpatient (IN) | payer OTHER ==
[~2023-04-08] VITALS: Ht 172.7 cm; Wt 99.8 kg
[2023-04-08] VITALS (7 sets, daily range): BP systolic 126–165; BP diastolic 49–116
[2023-04-08 16:46] LABS: Hematocrit 26.4 % (33.0-51.0); Hemoglobin 8.6 g/dL (11.5-16.0); Mean Corpuscular HGB 30.4 pg (26.0-34.0); Mean Corpuscular HGB Conc 32.6 g/dL (31.5-36.5); Mean Corpuscular Volume 93 fL (80-100); Mean Platelet Volume 12.8 fL (9.1-12.4); Platelet Count 60 K/mm3 (150-400); RDW Coefficient Variation 16.8 % (11.7-14.2); RDW Standard Deviation 56.3 fL (35.1-46.3); Red Blood Cell Count 2.83 M/mm3 (3.80-5.20); White Blood Cell Count 10.49 K/mm3 (4.00-11.30)
[2023-04-08 17:07] LABS: BAND PERCENT MAN 4 % (0-8); BASOPHILS PERCENT MAN 0 % (0-2); EOSINOPHILS PERCENT MAN 0 % (0-6); LYMPHOCYTES ABSOLUTE MAN 0.41 K/mm3 (0.84-5.20); LYMPHOCYTES PERCENT MAN 4 % (21-46); MONOCYTES ABSOLUTE MAN 0.83 K/mm3 (0.16-1.47); MONOCYTES PERCENT MAN 8 % (4-13); NEUTROPHILS ABSOLUTE MAN 9.23 K/mm3 (1.96-9.15); SEG NEUTROPHILS PERCENT MAN 84 % (41-73); TOTAL CELLS COUNTED 100
[2023-04-08 17:16] LABS: Albumin, Blood 3.8 g/dL (3.4-5.0); Bilirubin, Total 0.7 mg/dL (0.1-1.0); Bun/Creatinine Ratio 16.3 (12.0-20.0); Calcium, Blood 9.3 mg/dL (8.5-10.1); Creatinine, Blood 0.8 mg/dL (0.40-1.00); Potassium, Blood 4.5 mmol/L (3.5-5.5); Total Protein, Blood 7.8 g/dL (6.4-8.2)
[2023-04-08 19:33] LABS: Influenza A, PCR NEGATIVE (NEGATIVE); Influenza B, PCR NEGATIVE (NEGATIVE); Resp Syncytial Virus, PCR NEGATIVE (NEGATIVE); SARS-Cov-2 (COVID-19) PCR, MMC NEGATIVE (NEGATIVE)
[2023-04-08 21:43] LABS: Anti-Xa UFH, PHA Monitoring <0.10 IU/mL; International Normalized Ratio 1.03; Prothrombin Time Results 10.8 Sec (9.7-11.5)
--- NOTE | 2023-04-08 22:10 | NUR ---
ADMIT/ASSESSMENT PT ADMITTED TO PCU 8 FROM ER. ARRIVED VIA GURNEY, STOOD FOR TRANSFER TO BED WITH STANDBY ASSIST. MOVING AND TURNING SELF IN BED. DENIES PAIN AT THIS TIME. PT A&O, ANSWERING QUESTIONS APPROP. ONE UNIT PRBC TO BE TRANSFUSED, DUE TO RBC 2.83 AND PLT 60. HEPARIN GTT TO BE STARTED. PT ON 2 LITERS O2 VIA NC. RESP EVEN AND NONLABORED.
[2023-04-09] VITALS (12 sets, daily range): BP systolic 120–170; BP diastolic 49–83
--- NOTE | 2023-04-09 01:06 | NUR ---
ELEVATED TROPONIN CALL TO DR WRIGHT WITH ELEVATED TROPONIN 9981. PT ON HEPARIN GTT AND DENIES PAIN. EKG ORDERED
[2023-04-09 04:02] LABS: Hematocrit 27.1 % (33.0-51.0); Hemoglobin 8.8 g/dL (11.5-16.0); Mean Corpuscular HGB 29.3 pg (26.0-34.0); Mean Corpuscular HGB Conc 32.5 g/dL (31.5-36.5); Mean Corpuscular Volume 90 fL (80-100); Platelet Count 53 K/mm3 (150-400); RDW Coefficient Variation 18.2 % (11.7-14.2); RDW Standard Deviation 60.3 fL (35.1-46.3); White Blood Cell Count 7.55 K/mm3 (4.00-11.30)
[2023-04-09 04:25] LABS: Bun/Creatinine Ratio 19.3 (12.0-20.0); Calcium, Blood 8.7 mg/dL (8.5-10.1); Creatinine, Blood 0.83 mg/dL (0.40-1.00); Magnesium, Blood 1.9 mg/dL (1.6-2.4); Potassium, Blood 4.3 mmol/L (3.5-5.5)
--- NOTE | 2023-04-09 05:43 | NUR ---
SHIFT SUMMARY PT ADMITTED TO PCU FROM ER. ONE UNIT OF PRBC GIVEN. STARTED ON A HEPARIN GTT FOR NSTEMI AND ELEVATED TROPONINS. VSS. UP TO BSC WITH STANDBY ASSIST. ON 2 LITERS O2 VIA NS. EDEMA NOTED TO BILAT LOWER EXT. REPORT TO ON COMING NURSE
[2023-04-09 15:15] LABS: Hematocrit 25.8 % (33.0-51.0); Hemoglobin 8.6 g/dL (11.5-16.0); Mean Corpuscular HGB 30.1 pg (26.0-34.0); Mean Corpuscular HGB Conc 33.3 g/dL (31.5-36.5); Mean Corpuscular Volume 90 fL (80-100); Mean Platelet Volume 12.3 fL (9.1-12.4); Platelet Count 54 K/mm3 (150-400); RDW Coefficient Variation 18.6 % (11.7-14.2); Red Blood Cell Count 2.86 M/mm3 (3.80-5.20); White Blood Cell Count 7.86 K/mm3 (4.00-11.30)
--- NOTE | 2023-04-09 17:45 | NUR ---
PT ALERT, SHE IS ORIENTED X3. PT WITH GRANDIOSE STATEMENTS, SEEMS TO HAVE A POOR UNDERSTANDING OF HER HEALTHCARE. PT STATES THAT SHE REQUIRES NUMEROUS TESTING TO BE COMPLETED STATING THAT HER PRIMARY CARE PROVIDER TOLD HER TO HAVE THESE TEST PERFORMED HERE, BUT ALSO STATES THAT HER PRIMARY PROVIDER IS UNWILLING TO PERFORM THEM. HEPARIN WAS DISCONTINUED THIS AM. PT DENIES CHEST PAIN OR SHORTNESS OF BREATH. IT IS DIFFICULT TO KEEP HER ON TASK TO ANSWER QUESTIONS, PT IS VERY EASILY DISTRACTED AND GETS OFF TOPIC TO TELL OTHER STORIES. VSS, THIS AM WITH A HIGH BLOOD PRESSURE THAT WAS SUSPECTED TO ERRONEOUS PT WAS FLAILING ABOUT SHOUTING "THIS THING IS COLLAPSING MY VEINS", PT WAS NOT REDIRECTABLE DESPITE EDUCATION.
--- NOTE | 2023-04-09 18:30 | NUR ---
REPORT CALLED TO ROGERS ON MEDICAL FLOOR WHO TONI ASSUME PT CARE
[2023-04-10 03:10] VITALS: BP 117/56
--- NOTE | 2023-04-10 05:39 | NUR ---
PATIENT IS ALERT AND ORIENTED AND COOPERATIVE WITH CARE. SHE IS INDEPENDENT IN HER ROOM, AND HAD A LOT OF QUESTIONS ABOUT HER PLAN OF CARE. MINIMAL COMPLAINTS OF PAIN (IN LEGS "DUE TO SWELLING FROM WATER") RESOLVED EASILY WITH TYLENOL.
[2023-04-10 05:44] LABS: BASOPHILS ABSOLUTE AUTO 0.01 K/mm3 (0.00-0.23); BASOPHILS PERCENT AUTO 0 % (0-2); EOSINOPHILS ABSOLUTE AUTO 0.01 K/mm3 (0.00-0.68); EOSINOPHILS PERCENT AUTO 0 % (0-6); Hematocrit 28.8 % (33.0-51.0); Hemoglobin 9.4 g/dL (11.5-16.0); Mean Corpuscular HGB 29.7 pg (26.0-34.0); Mean Corpuscular HGB Conc 32.6 g/dL (31.5-36.5); Mean Corpuscular Volume 91 fL (80-100); Mean Platelet Volume 12.4 fL (9.1-12.4); Platelet Count 62 K/mm3 (150-400); RDW Coefficient Variation 18.1 % (11.7-14.2); RDW Standard Deviation 61.2 fL (35.1-46.3); Red Blood Cell Count 3.16 M/mm3 (3.80-5.20)
[2023-04-10 05:47] LABS: IMMATURE GRAN ABSOLUTE AUTO 0.05 K/mm3 (0.00-0.10); IMMATURE GRAN PERCENT AUTO 1 % (0-1); LYMPHOCYTES ABSOLUTE AUTO 1.02 K/mm3 (0.84-5.20); LYMPHOCYTES PERCENT AUTO 15 % (21-46); MONOCYTES ABSOLUTE AUTO 0.79 K/mm3 (0.16-1.47); MONOCYTES PERCENT AUTO 12 % (4-13); NEUTROPHILS ABSOLUTE AUTO 4.82 K/mm3 (1.96-9.15); NEUTROPHILS PERCENT AUTO 72 % (41-73)
[2023-04-10 06:04] LABS: Albumin, Blood 3.5 g/dL (3.4-5.0); Albumin/Globulin Ratio 0.9 (0.8-1.8); Bun/Creatinine Ratio 22.7 (12.0-20.0); Calcium, Blood 9.3 mg/dL (8.5-10.1); Creatinine, Blood 1.1 mg/dL (0.40-1.00); Globulin, Blood 4.1 g/dL (2.2-4.0); Potassium, Blood 3.8 mmol/L (3.5-5.5); Total Protein, Blood 7.6 g/dL (6.4-8.2)
[2023-04-10 07:25] VITALS: BP 174/75
[2023-04-10 15:19] VITALS: BP 156/77
--- NOTE | 2023-04-10 16:41 | NUR ---
SHIFT SUMMARY NO ACUTE CHANGES NOTED DURING SHIFT. PT ALERT AND ORIENTED, CALLS APPROPRIATELY. PT REMAINS SR PVC'S ON MONITOR. PT ON RA, INDEPENDENT IN ROOM. PT ON IV LASIX BID. ELECTROLYTE REPLACEMENT COMPLETED PER EMAR. NO C/O PAIN. WILL CONTINUE TO MONITOR. CALL LIGHT WITHIN REACH.
[2023-04-10 19:07] VITALS: BP 161/66
[2023-04-11 06:13] LABS: Bun/Creatinine Ratio 28.2 (12.0-20.0); Calcium, Blood 9.2 mg/dL (8.5-10.1); Creatinine, Blood 1.17 mg/dL (0.40-1.00); Potassium, Blood 4.7 mmol/L (3.5-5.5)
--- NOTE | 2023-04-11 07:32 | NUR ---
ETHANOL OPERATOR SUMMARY The patient was much less anxious last night than the night prior. This RN when she was slightly more alert encouraged her to have her spouse or son be a part of her discharge education so that they could ask questions and have a better understanding of the lifestyle and medication changes Luz Elena needs to make at home and how they can help. No complaints of chest pain, sob or chest pressure overnight.
[2023-04-11 07:34] VITALS: BP 173/67
[2023-04-11] MEDS ORDERED: METO50 PO (11:12)
[2023-04-11] MEDS ORDERED: ASPI81CH PO (11:12)
--- NOTE | 2023-04-11 14:38 | NUR ---
LATE ENTRY-DISCHARGE PT DISCHARGED HOME ALERT AND ORIENTED X3, CONFUSION. SPOUSE AT BEDSIDE. PT REPORTED THAT THEY ARE STOPPING OFF TO EAT ON THE WAY HOME. TREATED BG PER EMAR. GAVE PT JUICE AND SNACK BEFORE LEAVING A PRECAUTION. DISCHARGE INSTRUCTIONS DISCUSSED WITH PT. NO QUESTIONS AT THIS TIME. EMPHASIZED IMPORTANCE OF FOLLOW UP VISITS WITH PCP.
== END 2023-04-11 12:09 | disposition home or self-care (01) | DRG 280 ==
LOC: ER 16:08 → SURS 20:22 → PCU 20:22 → MEDS 20:22 → SURS 20:42 → PCU 21:21 → MEDS 04-09 18:50
PROVIDERS: Emergency Medicine; Family Medicine; Hospitalist; Physician Assistant; ADMIT Nurse Practitioner Acute Care
PROC: 30233N1 Transfusion of Nonautologous Red Blood Cells into Peripheral Vein, Percutaneous Approach (ICD-10-PCS; principal; 2023-04-08)
DX: I11.0 Hypertensive heart disease with heart failure (principal); I50.31 Acute diastolic (congestive) heart failure; I21.4 Non-ST elevation (NSTEMI) myocardial infarction; J96.01 Acute respiratory failure with hypoxia; I47.1 Supraventricular tachycardia; D69.6 Thrombocytopenia, unspecified; E11.65 Type 2 diabetes mellitus with hyperglycemia; F41.9 Anxiety disorder, unspecified; E78.5 Hyperlipidemia, unspecified; K90.0 Celiac disease; I48.0 Paroxysmal atrial fibrillation; I27.20 Pulmonary hypertension, unspecified; J44.9 Chronic obstructive pulmonary disease, unspecified; Z20.822 Contact with and (suspected) exposure to COVID-19; E03.9 Hypothyroidism, unspecified; Z88.0 Allergy status to penicillin; Z88.8 Allergy status to other drugs, medicaments and biological substances; Z98.890 Other specified postprocedural states; Z79.811 Long term (current) use of aromatase inhibitors; Z79.84 Long term (current) use of oral hypoglycemic drugs; Z79.51 Long term (current) use of inhaled steroids; Z79.899 Other long term (current) drug therapy; Z71.3 Dietary counseling and surveillance
CPT/HCPCS: 0241U; 36415; 36430; 71046; 71260; 80048; 80053; 82947; 83735; 83880; 84443; 84484; 85025; 85027; 85520; 85610; 86850; 86900; 86901; 86923; 93005; 93010; 94640; 94664; 94760; 96374; 99285-25; A9270; C8929; J1644; J1940; P9016; Q9957; Q9967

== ENCOUNTER → 2023-04-20 | Outpatient (CLI) | payer OTHER ==
[~2023-04-20] MED LIST changes: +ASPI81CH PO
[2023-04-20 16:59] LABS: Bun/Creatinine Ratio 16.8 (12.0-20.0); Calcium, Blood 8.9 mg/dL (8.5-10.1); Creatinine, Blood 0.83 mg/dL (0.40-1.00); Potassium, Blood 4.6 mmol/L (3.5-5.5)
== END ==
LOC: LAB 12:00 → LAB SHORT 12:00
PROVIDERS: Student in an Organized Health Care Education/Training Program
DX: I50.32 Chronic diastolic (congestive) heart failure (principal)
CPT/HCPCS: 80048

== ENCOUNTER 2023-10-27 10:58 | Inpatient (IN) | payer OTHER ==
[~2023-10-27] VITALS: Ht 172.7 cm; Wt 99.0 kg
[~2023-10-27 10:58] MED LIST changes: +ALEVAZOL TOP
[2023-10-27 11:48] LABS: BASOPHILS ABSOLUTE AUTO 0.01 K/mm3 (0.00-0.23); BASOPHILS PERCENT AUTO 0 % (0-2); EOSINOPHILS ABSOLUTE AUTO 0.01 K/mm3 (0.00-0.68); EOSINOPHILS PERCENT AUTO 0 % (0-6); Hematocrit 28.1 % (33.0-51.0); Hemoglobin 9.1 g/dL (11.5-16.0); Mean Corpuscular HGB 29.9 pg (26.0-34.0); Mean Corpuscular HGB Conc 32.4 g/dL (31.5-36.5); Mean Corpuscular Volume 92 fL (80-100); RDW Coefficient Variation 17.6 % (11.7-14.2); RDW Standard Deviation 58.8 fL (35.1-46.3); Red Blood Cell Count 3.04 M/mm3 (3.80-5.20); White Blood Cell Count 14.15 K/mm3 (4.00-11.30)
[2023-10-27 11:54] LABS: IMMATURE GRAN ABSOLUTE AUTO 0.17 K/mm3 (0.00-0.10); IMMATURE GRAN PERCENT AUTO 1 % (0-1); LYMPHOCYTES ABSOLUTE AUTO 0.56 K/mm3 (0.84-5.20); LYMPHOCYTES PERCENT AUTO 4 % (21-46); MONOCYTES ABSOLUTE AUTO 1.42 K/mm3 (0.16-1.47); MONOCYTES PERCENT AUTO 10 % (4-13); NEUTROPHILS ABSOLUTE AUTO 11.98 K/mm3 (1.96-9.15); NEUTROPHILS PERCENT AUTO 85 % (41-73)
[2023-10-27 11:56] LABS: Platelet Count 47 K/mm3 (150-400)
[2023-10-27 12:11] LABS: Albumin, Blood 3.8 g/dL (3.4-5.0); Bilirubin, Total 0.7 mg/dL (0.1-1.0); Bun/Creatinine Ratio 18.4 (12.0-20.0); Creatinine, Blood 0.92 mg/dL (0.40-1.00); Globulin, Blood 3.9 g/dL (2.2-4.0); Potassium, Blood 4.4 mmol/L (3.5-5.5); Total Protein, Blood 7.7 g/dL (6.4-8.2)
[2023-10-27] MEDS ORDERED: FURO20 PO (16:25)
[2023-10-27 17:12] VITALS: BP 157/57
--- NOTE | 2023-10-27 18:47 | NUR ---
ADMIT NOTE/ SHIFT SUMMARY- PT ALERT AND ORIENTED, DOES NOT APPEAR TO HAVE GOOD INSIGHT INTO HER HEALTHCARE NEEDS. SHE EXPLAINED THAT SHE DOES NOT CHECK HER BLOOD SUGAR REGULARLY BECAUSE IT CAUSES HER TO BECOME ANEMIC AND NEED A BLOOD TRANSFUSION. SHE CHECKS THE BG ONCE A WEEK AT HOME. SHE STATED HER DOCTOR WAS THINKING OF PLACING HER ON INSULIN AGAIN. SOME EDUCATION MAY BE NEEDED. PT IS A SBA TO THE BATHROOM D/T LINES AND TUBES. IV ABX INFUSING IN THE LFA IV THE PT RAC IV WAS SO POSITIONAL SHE COULD NOT SEEM TO UNDERSTAND THE INSTRUCTIONS TO PREVENT DISTAL OCCLUSION. R AC IV IS STILL IN PLACE FOR IV PUSH MEDS.
[2023-10-27 19:19] VITALS: BP 149/50
[2023-10-28 03:39] VITALS: BP 141/66
[2023-10-28 05:45] LABS: Hematocrit 27.2 % (33.0-51.0); Hemoglobin 8.7 g/dL (11.5-16.0); Mean Corpuscular HGB 30.3 pg (26.0-34.0); Mean Corpuscular Volume 95 fL (80-100); RDW Coefficient Variation 17.8 % (11.7-14.2); RDW Standard Deviation 61.2 fL (35.1-46.3); Red Blood Cell Count 2.87 M/mm3 (3.80-5.20); White Blood Cell Count 8.31 K/mm3 (4.00-11.30)
[2023-10-28 06:06] LABS: Albumin, Blood 3.5 g/dL (3.4-5.0); Albumin/Globulin Ratio 0.9 (0.8-1.8); Bilirubin, Total 0.8 mg/dL (0.1-1.0); Bun/Creatinine Ratio 26.6 (12.0-20.0); Calcium, Blood 8.8 mg/dL (8.5-10.1); Creatinine, Blood 1.09 mg/dL (0.40-1.00); Globulin, Blood 3.9 g/dL (2.2-4.0); Magnesium, Blood 1.8 mg/dL (1.6-2.4); Potassium, Blood 4.3 mmol/L (3.5-5.5); Total Protein, Blood 7.4 g/dL (6.4-8.2)
[2023-10-28 06:07] LABS: Platelet Count 43 K/mm3 (150-400)
[2023-10-28 06:15] LABS: BAND PERCENT MAN 1 % (0-8); BASOPHILS PERCENT MAN 0 % (0-2); EOSINOPHILS ABSOLUTE MAN 0.08 K/mm3 (0.00-0.68); EOSINOPHILS PERCENT MAN 1 % (0-6); LYMPHOCYTES ABSOLUTE MAN 0.99 K/mm3 (0.84-5.20); LYMPHOCYTES PERCENT MAN 12 % (21-46); MONOCYTES ABSOLUTE MAN 0.83 K/mm3 (0.16-1.47); MONOCYTES PERCENT MAN 10 % (4-13); NEUTROPHILS ABSOLUTE MAN 6.39 K/mm3 (1.96-9.15); SEG NEUTROPHILS PERCENT MAN 76 % (41-73); TOTAL CELLS COUNTED 100
[2023-10-28 07:20] VITALS: BP 177/62
--- NOTE | 2023-10-28 07:33 | NUR ---
SHIFT SUMMARY PT IS A&OX4. VSS ON 1L NC, INCREASED TO 2L NC WHILE ASLEEP. DENIES PAIN. TOLERATING AN ADA, GLUTEN FREE DIET. SBA TO BR. VOIDING ADEQUATE AMOUNTS OF CONCENTRATED URINE. LARGE BM X1 THIS SHIFT. PT C/O SOME PERIAREA ITCHING, SO ORDERED SOME DESENEX POWDER. LOOKS RED IN LABIAL FOLDS PROBABLY FROM PT ITCHING, BUT DID NOT APPEAR TO HAVE YEAST. BED IN LOWEST POSITION, CALL LIGHT WITHIN REACH. FIRE SAFETY CHECKS COMPLETED
[2023-10-28 09:53] VITALS: BP 178/59
--- NOTE | 2023-10-28 11:02 | NUR ---
"Spiritual Care | Pt. request Pt. is awake in bed when she welcomes my visit. Spouse is present at bedside. Facilitated a life review and considered the many ailments the Pt. has experienced in her life. Listen with empathy and a calming presence. The Pts. spouse verbalized he is also is dealing with health concerns. Considered matters of shalonda. Spouse verbalized that [facility]. Prayed with both the Pt. and spouse. Both verbalized gratitude for the spiritual care visit."
--- NOTE | 2023-10-28 11:41 | NUR ---
spoke to dr de dios on rounds- PT NOON BG WAS 450. AWARE. ORDER RECIEVED TO CHANGE THE PT TO HUMALOG MED CS FOR COVERAGE FOR LUNCH ORDERED AC/HS.
[2023-10-28 15:28] VITALS: BP 172/63
--- NOTE | 2023-10-28 19:00 | NUR ---
SHIFT SUMMARY- PT HAS SHOWN IMPROVEMENT TODAY, SHE APPEARS TO FEEL MUCH BETTER THIS EVENING. SHE IS FREQUENTLY ON ROOM AIR ON CARE ROUNDS. SATS ARE MAINTAINING ABOVE 90%. PT IS INDEPENDENT TO THE BATHROOM. PLAN IS FOR THE PT TO DC HOME WHEN APPROPRIATE. PT IN BED, CALL LIGHT IN REACH NO S&S OF DISTRESS NOTED.
[2023-10-28 19:42] VITALS: BP 144/69
[2023-10-29 04:21] VITALS: BP 93/75
[2023-10-29 05:51] LABS: BASOPHILS PERCENT AUTO 0 % (0-2); EOSINOPHILS ABSOLUTE AUTO 0.03 K/mm3 (0.00-0.68); EOSINOPHILS PERCENT AUTO 1 % (0-6); Hematocrit 28.1 % (33.0-51.0); Hemoglobin 8.8 g/dL (11.5-16.0); IMMATURE GRAN ABSOLUTE AUTO 0.03 K/mm3 (0.00-0.10); IMMATURE GRAN PERCENT AUTO 1 % (0-1); LYMPHOCYTES ABSOLUTE AUTO 0.89 K/mm3 (0.84-5.20); LYMPHOCYTES PERCENT AUTO 20 % (21-46); MONOCYTES ABSOLUTE AUTO 0.79 K/mm3 (0.16-1.47); MONOCYTES PERCENT AUTO 17 % (4-13); Mean Corpuscular HGB 29.9 pg (26.0-34.0); Mean Corpuscular HGB Conc 31.3 g/dL (31.5-36.5); Mean Corpuscular Volume 96 fL (80-100); NEUTROPHILS ABSOLUTE AUTO 2.83 K/mm3 (1.96-9.15); NEUTROPHILS PERCENT AUTO 62 % (41-73); RDW Coefficient Variation 17.4 % (11.7-14.2); Red Blood Cell Count 2.94 M/mm3 (3.80-5.20); White Blood Cell Count 4.57 K/mm3 (4.00-11.30)
[2023-10-29 06:00] LABS: Mean Platelet Volume 12.4 fL (9.1-12.4)
[2023-10-29 06:03] LABS: Platelet Count 45 K/mm3 (150-400)
[2023-10-29 06:14] LABS: Creatinine, Blood 1.1 mg/dL (0.40-1.00); Potassium, Blood 4.4 mmol/L (3.5-5.5)
[2023-10-29 06:43] VITALS: BP 158/67
--- NOTE | 2023-10-29 06:44 | NUR ---
1900: ASSUMED CARE OF PT. REPORT RECEIVED FROM DAY SHIFT RN. PT IS SITTING UP IN BED. A/O X4, BREATHING IS EVEN AND UNLABORED. CONTINOUS OXIMITER AND TELEMETRY IN PLACE. PT SATURATION IS 98% ON 2LPM. TITRATED DOWN TO 1 LITER DURING THE SHIFT SATURATION OF 89-94%. PLT IMPROVED BY 2 POINTS FROM YESTERDAY. NO ACUTE DISTRESS OR PAIN DURING THE SHIFT. PT STATES THAT SHE FEELS SHE IS GETTING BETTER. IND TO THE BATHROOM DURING THE NIGHT. NEEDS ADDRESSED AND SAFETY MEASURES TAKEN.
[2023-10-29 06:46] VITALS: BP 164/70
[2023-10-29 08:00] VITALS: BP 176/66
[2023-10-29 15:46] VITALS: BP 138/54
[2023-10-29 19:47] VITALS: BP 160/72
--- NOTE | 2023-10-29 20:12 | NUR ---
SHIFT SUMMARY- PT HAS HAD NO ACUTE CHANGE T/O THE SHIFT. SHE DID REFUSE THE BIOX THIS AFTERNOON. PASSED ON IN BEDSIDE REPORT TO NIGHT RN. PT INDEPENDENT IN THE ROOM. PLAN FOR DC HOME TOMORROW. BG WERE MORE MANAGED TODAY.
--- NOTE | 2023-10-30 02:39 | NUR ---
SHIFT SUMMARY PT AWAKE DURING SHIFT REPORT. PLEASANT AND CO-OP, BUT VERY TALKATIVE, ASKING LOTS OF QUESTIONS. PT IS FORGETFUL WITH SOME CONFUSION. ADMITTED FOR PNM; IMPROVING. PT ON RA WITH BIOX @ 98%. POSSIBLE D/C HOME TOMORROW. PT IS UP INDEPENDENTLY IN RM AND TO BTHRM. PT WENT TO SLEEP THIS EVENING FOR SEVERAL HOURS AND THEN WOKE UP DISORIENTED. PT GOT HERSELF DRESSED AND GATHERED HER BELONGINGS AND THEN WALKED AROUND THE HALLS OUTSIDE HER RM. PT SOON REALIZED WHERE SHE WAS AND HEADED BACK TO HER RM. PT COULDN'T REMEMBER HOW SHE GOT HERE OR WHY SHE WAS HERE. PT REMINDED OF DX AND CARE SHE IS RECEIVING. PT THEN GOT HERSELF UNDRESSED, PUTTING HER GOWN BACK ON AND WENT BACK TO BED. DENIED FURTHER NEEDS. PT CONTINUES TO REST QUIETLY AT THIS TIME. CALL LT IN REACH.
[2023-10-30 04:41] VITALS: BP 128/51
[2023-10-30 07:52] VITALS: BP 164/68
[2023-10-30 08:17] LABS: Hematocrit 29.7 % (33.0-51.0); Hemoglobin 9.6 g/dL (11.5-16.0); Mean Corpuscular HGB 30.2 pg (26.0-34.0); Mean Corpuscular HGB Conc 32.3 g/dL (31.5-36.5); Mean Corpuscular Volume 93 fL (80-100); Mean Platelet Volume 11.6 fL (9.1-12.4); Platelet Count 54 K/mm3 (150-400); RDW Coefficient Variation 16.9 % (11.7-14.2); RDW Standard Deviation 57.4 fL (35.1-46.3); Red Blood Cell Count 3.18 M/mm3 (3.80-5.20); White Blood Cell Count 5.09 K/mm3 (4.00-11.30)
[2023-10-30 08:35] LABS: Bun/Creatinine Ratio 31.8 (12.0-20.0); Creatinine, Blood 1.1 mg/dL (0.40-1.00); Potassium, Blood 4.5 mmol/L (3.5-5.5)
[2023-10-30 08:45] LABS: BASOPHILS PERCENT MAN 0 % (0-2); EOSINOPHILS ABSOLUTE MAN 0.05 K/mm3 (0.00-0.68); EOSINOPHILS PERCENT MAN 1 % (0-6); LYMPHOCYTES ABSOLUTE MAN 1.01 K/mm3 (0.84-5.20); LYMPHOCYTES PERCENT MAN 20 % (21-46); MONOCYTES PERCENT MAN 10 % (4-13); NEUTROPHILS ABSOLUTE MAN 3.51 K/mm3 (1.96-9.15); SEG NEUTROPHILS PERCENT MAN 69 % (41-73); TOTAL CELLS COUNTED 100
[2023-10-30] MEDS ORDERED: JARDIANCE25 MG PO (11:56)
[2023-10-30] MEDS ORDERED: VISBIOME 112.51 EACH PO (11:57)
[2023-10-30] MEDS ORDERED: BASAGLAR K100 UNIT/6 SC (11:57)
[2023-10-30] MEDS ORDERED: Acetaminophen650 M1 PO (11:57)
[2023-10-30] MEDS ORDERED: CEFP200 PO (11:57)
--- NOTE | 2023-10-30 12:36 | NUR ---
SHIFT/DISCHARGE SUMMARY Pt remains A&Ox3 but forgetful. VSS. Resp even nonlabored on RA. Up to bathroom independently. All discharge instructions reviewed with return verbal understanding. Pt request to walk with to lobby.
[2023-10-31 06:07] LABS: HEMOGLOBIN A1C 10.3 % (4.8-5.6)
== END 2023-10-30 12:43 | disposition home or self-care (01) | DRG 871 ==
LOC: ER 10:58 → MEDS 15:27
PROVIDERS: Family Medicine; Physician Assistant; ADMIT Student in an Organized Health Care Education/Training Program
DX: A41.9 Sepsis, unspecified organism (principal); I50.33 Acute on chronic diastolic (congestive) heart failure; J18.9 Pneumonia, unspecified organism; J96.01 Acute respiratory failure with hypoxia; I13.0 Hypertensive heart and chronic kidney disease with heart failure and stage 1 through stage 4 chronic kidney disease, or unspecified chronic kidney disease; E87.1 Hypo-osmolality and hyponatremia; E03.9 Hypothyroidism, unspecified; D69.6 Thrombocytopenia, unspecified; E11.22 Type 2 diabetes mellitus with diabetic chronic kidney disease; I48.0 Paroxysmal atrial fibrillation; D63.1 Anemia in chronic kidney disease; J45.909 Unspecified asthma, uncomplicated; K90.0 Celiac disease; N18.30 Chronic kidney disease, stage 3 unspecified; Z99.81 Dependence on supplemental oxygen; Z88.0 Allergy status to penicillin; Z88.8 Allergy status to other drugs, medicaments and biological substances; Z79.84 Long term (current) use of oral hypoglycemic drugs; Z79.899 Other long term (current) drug therapy; Z79.811 Long term (current) use of aromatase inhibitors; Z79.82 Long term (current) use of aspirin; Z98.890 Other specified postprocedural states; I25.2 Old myocardial infarction
CPT/HCPCS: 36415; 71046; 80048; 80053; 82947; 83036; 83605; 83735; 83880; 85025; 87040; 87070; 87205; 87449; 93005; 93010; 94760; 94762; 96365; 96366; 96367; 99284-25; A9270; J0456; J0696; J1815; J1940; J7050

== ENCOUNTER 2024-02-25 16:00 | Inpatient (IN) | payer OTHER ==
[~2024-02-25] VITALS: Ht 177.8 cm; Wt 103.2 kg
[2024-02-25] VITALS (30 sets, daily range): BP systolic 86–145; BP diastolic 33–87
[~2024-02-25 16:00] MED LIST changes: +Acetaminophen650 M1 PO; +Atropine Sulfate 0.1 MG/ML 10ML SYR IV ONE; +BASAGLAR K100 UNIT/6 SC; +CEFP200 PO; +Calcium Chloride 10% 10 ML SYR IV ONE; +DOPamine 400 MG/Dextrose 250 ML Bag IV ONE; +EPINEPhrine HCl 0.1 MG/ML 10ML SYR IV ONE; +JARDIANCE25 MG PO; +NITR100CA PO; +Sodium Bicarb 8.4% 50 mEq Syringe IV ONE; +VISBIOME 112.51 EACH PO
[2024-02-25 16:35] LABS: Calcium, Ionized (POC) 1.04 mmol/L (1.10-1.46); Chloride (POC) 98 mmol/L (98-108); Creatinine (POC) 2.3 mg/dL (0.6-1.0); Glucose (ISTAT POC) 332 mg/dL (70-99); Hemoglobin (POC) 8.2 g/dL (12.0-16.0); Sodium (POC) 125 mmol/L (135-148); Total CO2 (POC) 14 mmol/L (21-32)
[2024-02-25] MEDS ORDERED: Insulin Regular 100 Unit/ML 1ML Dose IV ONE ×2 (16:40→17:00)
[2024-02-25] MEDS ORDERED: Sodium Bicarb 8.4% Inj 100 MEQ in Dextrose 5% 1,000 ML IV SCH (16:40)
[2024-02-25] MEDS ORDERED: Aspirin 300 MG Supp PR ONE (16:40)
[2024-02-25] MEDS ORDERED: Sodium Zirconium Cyclosilicate 10 GM Packet PT ONE (16:40)
[2024-02-25] MEDS ORDERED: Albuterol 2.5 MG/3 ML VIAL INH SCH (16:40)
[2024-02-25] MEDS ORDERED: Calcium Gluconate 10% 100 MG/ML INJ IV SCH (16:50)
[2024-02-25 17:00] LABS: pH Blood Arterial 7.17 (7.35-7.45)
[2024-02-25] MEDS ORDERED: Dextrose 50% 50 ML Syringe IV ONE (17:00)
[2024-02-25 17:01] LABS: PCO2 Arterial 51.3 mmHg (35-45); PO2 Arterial 214 mmHg (80-100)
[2024-02-25 17:02] LABS: Hematocrit 24.8 % (33.0-51.0); Hemoglobin 7.3 g/dL (11.5-16.0); Mean Corpuscular HGB Conc 29.4 g/dL (31.5-36.5); Mean Corpuscular Volume 109 fL (80-100); NRBC ABSOLUTE 0.27 K/mm3 (0.00-0.02); NRBC Auto 2.9 /100 WBC (0.0-0.2); RDW Coefficient Variation 21.9 % (11.7-14.2); RDW Standard Deviation 85.7 fL (35.1-46.3); Red Blood Cell Count 2.28 M/mm3 (3.80-5.20)
[2024-02-25] MEDS ORDERED: Azithromycin 500 MG in NS 250 ML IV ONE (17:05)
[2024-02-25] MEDS ORDERED: Cefepime HCl 1,000 MG in NS 100 ML IV ONE (17:05)
[2024-02-25] MEDS ORDERED: Vancomycin HCL 1,500 MG in NS 265 ML IV ONE (17:05)
[2024-02-25 17:06] LABS: Platelet Count 38 K/mm3 (150-400)
[2024-02-25 17:07] LABS: Magnesium, Blood 2.9 mg/dL (1.6-2.4)
[2024-02-25] MEDS ORDERED: NS 1,000 ML IV SCH (17:10)
[2024-02-25 17:13] LABS: Bun/Creatinine Ratio 20.6 (12.0-20.0); Calcium, Blood 8.5 mg/dL (8.5-10.1); Creatinine, Blood 1.7 mg/dL (0.40-1.00); International Normalized Ratio 1.64; Potassium, Blood 8.1 mmol/L (3.5-5.5); Prothrombin Time Results 16.9 Sec (9.7-11.5)
[2024-02-25 17:20] LABS: BASOPHILS PERCENT MAN 0 % (0-2); EOSINOPHILS PERCENT MAN 0 % (0-6); LYMPHOCYTES ABSOLUTE MAN 1.56 K/mm3 (0.84-5.20); LYMPHOCYTES PERCENT MAN 17 % (21-46); METAMYELOCYTE ABSOLUTE MAN 0.18 K/mm3 (0.00-0.00); METAMYELOCYTE PERCENT MAN 2 % (0-0); MONOCYTES ABSOLUTE MAN 1.38 K/mm3 (0.16-1.47); MONOCYTES PERCENT MAN 15 % (4-13); NEUTROPHILS ABSOLUTE MAN 6.07 K/mm3 (1.96-9.15); SEG NEUTROPHILS PERCENT MAN 66 % (41-73); TOTAL CELLS COUNTED 100
[2024-02-25] MEDS ORDERED: propofoL 100 ML IV SCH (17:35)
[2024-02-25] MEDS ORDERED: FentaNYL Citrate 50 MCG/ML 2 ML Injection IV ONE (17:55)
[2024-02-25] MEDS ORDERED: Albuterol 2.5 MG/3 ML VIAL INH PRN (18:40)
[2024-02-25] MEDS ORDERED: Acetaminophen 325 MG TABLET PO PRN (18:45)
[2024-02-25] MEDS ORDERED: Ondansetron HCl 2 MG / ML 2ML Vial IV PRN (18:45)
[2024-02-25] MEDS ORDERED: DOPamine HCl 400 MG in Dextrose 5% 250 ML IV PRN (19:00)
[2024-02-25] MEDS ORDERED: CefTRIAXone Sodium 1,000 MG in NS 100 ML IV SCH ×2 (19:00→21:40)
[2024-02-25 19:34] LABS: Bun/Creatinine Ratio 23.1 (12.0-20.0); Creatinine, Blood 1.69 mg/dL (0.40-1.00)
[2024-02-25 19:36] LABS: Calcium, Blood 14.5 mg/dL (8.5-10.1); Potassium, Blood 5.6 mmol/L (3.5-5.5)
[2024-02-25 19:44] LABS: Iron Serum 195 ug/dL (50-170); Percent Saturation 85.5 % (15.0-50.0); Total Iron Binding Capacity 228 ug/dL (250-450)
[2024-02-25 20:37] LABS: Ferritin, Serum 6978 ng/mL (8-252)
[2024-02-25 20:54] LABS: Source, Urine Foley catheter
[2024-02-25] MEDS ORDERED: LORazepam 2 MG/ML 1ML Injection IV PRN (20:55)
[2024-02-25 20:57] LABS: Appearance, Urine Cloudy (Clear); Bilirubin, Urine Neg (Neg); Blood, Urine 2+ (Neg); Color, Urine Yellow (P-Yellow); Glucose Qualitative, Urine Neg (Neg); Ketones, Urine Neg (Neg); Leukocyte Esterase, Urine 3+ (Neg); Nitrite, Urine Neg (Neg); Protein, Urine 3+ (Neg); Specific Gravity, Urine 1.015 (1.003-1.022); Urobilinogen, Urine NORM (Normal)
[2024-02-25 21:02] LABS: PCO2 Venous 42.9 mmHg (38-42); pH Blood Venous 7.11 (7.34-7.37)
[2024-02-25 21:03] LABS: Base Excess Venous -15.8 mmol/L
[2024-02-25 21:18] LABS: Bun/Creatinine Ratio 22.3 (12.0-20.0); Calcium, Blood 12.6 mg/dL (8.5-10.1); Creatinine, Blood 1.84 mg/dL (0.40-1.00); Potassium, Blood 5.6 mmol/L (3.5-5.5)
[2024-02-25 21:28] LABS: Amorphous Mod (0-Heavy); Bacteria Many /hpf; Mucus Light (0-Heavy); Red Blood Cells, Urine 0-2 /hpf (0-2); Squamous Epithelial Cells Mod /hpf (Few); White Blood Cells, Urine 50-100 /hpf (0-5)
[2024-02-25 21:29] LABS: U Amphetamine Screen Not Detected; U Barbituate Screen Not Detected; U Benzodiazapine Screen Not Detected; U Buprenorphine Screen Not Detected; U Cannabinoids Screen Not Detected; U Cocaine Screen Not Detected; U Methadone Screen Not Detected; U Methamphetamine Screen Not Detected; U Opiates Screen Not Detected; U Oxycodone Screen Not Detected; U Phencyclidine Screen Not Detected
[2024-02-25] MEDS ORDERED: Sodium Bicarb 8.4% 1 MEQ/ML 50 ML Vial IV ONE (21:45)
[2024-02-25] MEDS ORDERED: Sodium Bicarb 8.4% 1 MEQ/ML 50 ML Vial ONE (21:46)
[2024-02-25] MEDS ORDERED: FentaNYL Citrate 50 MCG/ML 2 ML Injection IV PRN (22:20)
[2024-02-25] MEDS ORDERED: FentaNYL Citrate 50 MCG/ML 2 ML Injection ONE (22:24)
[2024-02-25] MEDS ORDERED: NS 500 ML IV ONE ×2 (22:35)
[2024-02-25 23:15] LABS: PCO2 Arterial 40.7 mmHg (35-45); PO2 Arterial 122 mmHg (80-100); pH Blood Arterial 7.05 (7.35-7.45)
--- NOTE | 2024-02-25 23:17 | NUR ---
PT ARRIVED TO ICU ROOM 8 @2027 BROUGHT ON ED GURHURON BY ED RN, WENT TO CT PRIOR TO ARRIVAL. PT ON VENT, AC/VC; 20/450/FIO2 100%. LEVOPHED RUNNING AT 30MCG/MIN, DOPAMINE 20MCG/KG/MIN, AND PROPOFOL AT 10MCG/KG/MIN. PT APPEARS PALE AND MOTTLING OBSERVED TO BLES. HOSPITALIST CURTIS TO BEDSIDE. VERBAL ORDER FOR EPI DRIP RECIEVED AND INITIATED, DUE TO MAP<65. DR. HOLLIDAY ARRIVES SHORTLY AFTER. PLAN TO PLACE ART LINE. ORDERS TO TURN OFF PROPOFOL @2214. AT 2 PT ROUSES AND OPENS EYES TO VERBAL STIMULI, ATTEMPTS TO SPEAK OVER TUBE. PT GIVEN PRN FENTANYL AND PROPOFOL RESTARTED FOR VENT COMPLIANCE/ COMFORT. PROPOFOL CURRENTLY RUNNING AT 25MCG/KG/MIN. CURRENT VENT SETTINGS; 24440/100%. O2 SATURATIONS 92% HR 70S AND REGULAR, MAP REMAINS LOW AND TITRATION CONTINUES. STAPLETON CATH PLACED PRIOR TO ARRIVAL ON UNIT, 10ML TOTAL OUTPUT. PATENT. PT FAMILY; (DON) AND 2 SONS AT BEDSIDE DURING INTERVENTIONS. PROCEDURE CONSENT DISCUSSED W/ DR. HOLLIDAY. FAMILY PRESENT WHEN PT ROUSED AND TOLD HER FORD PRIOR TO LEAVING.
[2024-02-25] MEDS ORDERED: NS 250 ML IV PRN (23:20)
[2024-02-26] VITALS (11 sets, daily range): BP systolic 90–167; BP diastolic 27–43
[2024-02-26] MEDS ORDERED: Insulin Human Lispro 100 Units/ML 3ML Syringe SC SCH
--- NOTE | 2024-02-26 01:00 | NUR ---
UPDATE DR DIAZ INSTRUCTIONS REGARDING GTT'S AND ART LINE READINGS; MADE AWEAROF WIDE PULSE PRESSOR WITH SBP 110-130'S AND DBP 20-50'S, MAP 40-60'S; PLAN TO TITRATE PRESSORS FOR A GOAL OF SBP >100 OR MAP >65, WHICHEVER COMES FIRST; ALSO TRY TO TITRATE DOPAMINE TO OFF. WHEN DOPAMINE WAS OFF HER HR DECREASED TO THE LOW 40'S, DOPAMINE THAN RESTARTED; SEE FLOWSHEET FOR TITRATIONS.
[2024-02-26 01:49] LABS: PCO2 Arterial 33.9 mmHg (35-45); PO2 Arterial 131 mmHg (80-100); pH Blood Arterial 6.98 (7.35-7.45)
[2024-02-26 03:34] LABS: Magnesium, Blood 2.5 mg/dL (1.6-2.4)
[2024-02-26 03:58] LABS: Albumin, Blood 2.6 g/dL (3.4-5.0); Bilirubin, Total 1.8 mg/dL (0.1-1.0); Bun/Creatinine Ratio 19.6 (12.0-20.0); Creatinine, Blood 2.25 mg/dL (0.40-1.00); Globulin, Blood 2.7 g/dL (2.2-4.0); Potassium, Blood 5.4 mmol/L (3.5-5.5); Total Protein, Blood 5.3 g/dL (6.4-8.2)
[2024-02-26 03:59] LABS: Phosphorus, Blood 9.2 mg/dL (2.5-4.9)
[2024-02-26] MEDS ORDERED: Hydrogen Peroxide 1.5 % Solution MT SCH (04:00)
[2024-02-26 04:43] LABS: PCO2 Arterial 30.8 mmHg (35-45); PO2 Arterial 138 mmHg (80-100)
[2024-02-26 04:46] LABS: pH Blood Arterial 6.95 (7.35-7.45)
[2024-02-26] MEDS ORDERED: Sodium Bicarb 8.4% Inj 150 MEQ in Dextrose 5% 1,000 ML IV SCH ×2 (05:00→16:00)
[2024-02-26] MEDS ORDERED: Sodium Bicarb 8.4% 1 MEQ/ML 50 ML Vial IV ONE ×2 (05:00→07:05)
[2024-02-26 05:18] LABS: Hematocrit 26.2 % (33.0-51.0); Hemoglobin 7.7 g/dL (11.5-16.0); Mean Corpuscular HGB 31.4 pg (26.0-34.0); Mean Corpuscular HGB Conc 29.4 g/dL (31.5-36.5); Mean Corpuscular Volume 107 fL (80-100); NRBC ABSOLUTE 0.98 K/mm3 (0.00-0.02); NRBC Auto 3.1 /100 WBC (0.0-0.2); RDW Coefficient Variation 20.9 % (11.7-14.2); RDW Standard Deviation 75.4 fL (35.1-46.3); Red Blood Cell Count 2.45 M/mm3 (3.80-5.20); White Blood Cell Count 31.89 K/mm3 (4.00-11.30)
[2024-02-26 05:29] LABS: International Normalized Ratio 2.9; Prothrombin Time Results 28.7 Sec (9.7-11.5)
[2024-02-26 05:31] LABS: Platelet Count 39 K/mm3 (150-400)
[2024-02-26 05:49] LABS: BAND PERCENT MAN 3 % (0-8); BASOPHILS PERCENT MAN 0 % (0-2); EOSINOPHILS PERCENT MAN 0 % (0-6); LYMPHOCYTES ABSOLUTE MAN 2.23 K/mm3 (0.84-5.20); LYMPHOCYTES PERCENT MAN 7 % (21-46); MONOCYTES ABSOLUTE MAN 1.91 K/mm3 (0.16-1.47); MONOCYTES PERCENT MAN 6 % (4-13); NEUTROPHILS ABSOLUTE MAN 27.74 K/mm3 (1.96-9.15); SEG NEUTROPHILS PERCENT MAN 84 % (41-73); TOTAL CELLS COUNTED 100
--- NOTE | 2024-02-26 06:24 | NUR ---
END OF SHIFT SUMMARY MOTTLING TO PT'S R. HAND AND BLES CONTINUES TO WORSEN. REMAINS PALE AND COOL TO TOUCH. NEURO-PT HAS NO PURPOSEFUL MOVEMENTS AT THIS TIME. RIGHT PUPIL IS FIXED AND DILATED, LEFT IS 8MM AND HAS SLUGGISH RESPONSE TO LIGHT. PROPOFOL AT 25MCG/KG/MIN CARDIAC- PT HR REMAINS IN 50S, PT BECAME GLYNN IN THE 30S WHEN DOPAMINE INFUSION WAS TURNED OFF. CURRENTLY RUNNING AT 5MCG/KG/MIN. EPI AT 17MCG/MIN, LEVOPHED 40 MCG/MIN. BPS AQUIRED FROM ART LINE REMAIN WIDE W/ DIASTOLIC AT 30 AND SYSTOLIC PRESSURE RANGING FROM 90-130S. BICARB ALSO INFUSING ORDERED. RESPIRATORY- PT ON VENT W/ SETTINGS; AC/VC 26/8/500/90% FIO2. SATURATIONS ARE GREATER THAN 95%. ETT 24 @LIPS, OG TUBE ALSO IN PLACE AND CLAMPED. GI/: PT HAS STAPLETON CATH PLACED, PATENT AND DRAINING TO GRAVITY. 20ML OF YELLOW URINE OUTPUT SINCE ADMIT TO UNIT. SKIN: MENTIONED PREVIOUSLY, PT CONTINUES TO HAVE PALE MOTTLED SKIN. BRUISING NOTED TO UPPER ABDOMEN. ABRASION TO RIGHT MEDIAL ANKLE, PHOTOS IN CHART. PT ALSO HAS BLISTERING TO UPPER INNER THIGHS. PT ARRIVED FROM ED W/ HEAT PACKS TO THIS AREA. PHOTOS IN CHART. WILL REPORT TO ONCOMING RN WHEN AVAILABLE. CARE CONTINUES
[2024-02-26 06:32] LABS: Magnesium, Blood 2.5 mg/dL (1.6-2.4)
[2024-02-26 06:39] LABS: Albumin, Blood 2.6 g/dL (3.4-5.0); Bilirubin, Total 1.7 mg/dL (0.1-1.0); Bun/Creatinine Ratio 18.7 (12.0-20.0); Calcium, Blood 9.5 mg/dL (8.5-10.1); Creatinine, Blood 2.41 mg/dL (0.40-1.00); Globulin, Blood 2.7 g/dL (2.2-4.0); Potassium, Blood 5.6 mmol/L (3.5-5.5); Total Protein, Blood 5.3 g/dL (6.4-8.2)
[2024-02-26] MEDS ORDERED: Vasopressin 20 UNITS in NS 100 ML IV SCH (07:00)
[2024-02-26] MEDS ORDERED: Dopamine/Dextrose 250 ML IV SCH (07:10)
[2024-02-26] MEDS ORDERED: Piperacillin/Tazobactam Sod 4.5 GM in NS 100 ML IV ONE (08:00)
--- NOTE | 2024-02-26 08:34 | NUR ---
ASSUMED CARE BEDSIDE REPORT FROM MIRTA MOHAMUD AT 0700. PT INTUBATED AND SEDATED. VENT SETTINGS AC/VC 26/500/8/80%. LUNGS COARSE THROUGHOUT, WORSE ON LEFT SIDE. SCANT SECRETIONS FROM ETT. PROPOFOL GTT FOR SEDATION, RASS -4, CPOT 0. PT GRIMACES c ORAL CARE AND TRAPEZUS PINCH. DOES NOT WITHDRAW EXT TO PAIN OR HAVE PURPOSEFUL MOVEMENTS. NO COUGH/GAG/SWALLOW REFLEX OR CORNEAL REFLEX. PUPILS 6 MM BILATERALLY, CLOUDY, LEFT NON REACTIVE TO LIGHT, RIGHT SLUGGISH. SB c 1ST DEGREE BLOCK, RATE 55-60'S. DOPAMINE GTT FOR HR. LEVO, VASO, AND EPI FOR MAP>60. WIDE PULSE PRESSURES. SBP 160'S, DBP 30'S. EXT MOTTLED, PULSES BY DOPPLER. DELAYED CAP REFILL. AFEBRILE. OGT CLAMPED. ABD OBESE, SOFT, HYPOACTIVE BT. STAPLETON PATENT, OLIGURIC. ART LINE TO LEFT GROIN, GOOD WAVEFORM, FLUSHED. CVC TO RIJ, DRESSINGS C/D/I. PIV X 2. EKG COMPLETE AND SHOWN TO PRINTER SLOTTER FEEDER, ECHO COMPLETE. PALLIATIVE CARE NOTIFIED OF CONSULT. WILL CONTINUE PLAN OF CARE.
[2024-02-26 08:45] LABS: CHOL/HDL RATIO Unable to Calculate; Cholesterol <50 mg/dL (50-200); HDL Cholesterol 15 mg/dL (>39); LDL/HDL RATIO Unable to Calculate; Low Density Lipoprotein Chol Unable to Calculate mg/dL (0-110); Triglycerides 104 mg/dL (30-160); Vancomycin, Random 17.2 ug/mL; Very Low Density Lipoprot Chol 20 mg/dL (6-32)
[2024-02-26] MEDS ORDERED: NS IV SCH (09:00)
[2024-02-26] MEDS ORDERED: Aspirin 81 MG Chew PT SCH (09:00)
[2024-02-26] MEDS ORDERED: Atorvastatin 10 MG Tab PT SCH (09:00)
[2024-02-26] MEDS ORDERED: MEROPENEM IV SCH (09:00)
[2024-02-26] MEDS ORDERED: Vancomycin HCL 1,000 MG in NS 100 ML IV SCH ×2 (10:00→19:00)
--- NOTE | 2024-02-26 10:05 | NUR ---
UPDATE SIGNIFICANT INCREASE IN MOTTLING TO LEFT HAND, RADIAL PULSE BY DOPPLER. HAND COOL. 2 RINGS REMOVED AND PLACED IN LOCKED BOX. DR STACEY MENJIVAR.
--- NOTE | 2024-02-26 10:36 | NUR ---
Pt's arrived around 10am this morning, Dr. Chatman explained how tenuous the pt's condition currently is, and given her current blood pressure while on 4 separate pressors, he does not expect her to make it through the day. Pt's Don verbalizes understanding, and does not wish us to try to resuscitate her should her heart stop again. Pt's sons all updated regarding pt's current status and verbalize understanding.
[2024-02-26] MEDS ORDERED: Albumin (Human) 25gm/100ml 100 ML IV ONE (10:50)
[2024-02-26] MEDS ORDERED: NS 500 ML IV ONE (11:00)
[2024-02-26] MEDS ORDERED: Pantoprazole Sodium 40 MG Injection IV SCH (11:00)
[2024-02-26] MEDS ORDERED: Hydrocortisone Sod Succinate 100 MG Vial IV SCH (12:00)
[2024-02-26 12:07] LABS: PCO2 Arterial 28.6 mmHg (35-45); PO2 Arterial 237 mmHg (80-100); pH Blood Arterial 6.91 (7.35-7.45)
--- NOTE | 2024-02-26 12:19 | NUR ---
Pt's sons Finesse arrived, request meeting with shear operator Dr. Chatman at bedside. Pt remains on 4 pressors, and sons ask about finding out the underlying cause of pt's low blood pressure. Dr. Chatman has gently explained to sons that he is not expecting the patient to survive the day, which they admittedly state they are struggling with this information. They mention the patient was able to talk to them last night, and today is such a change. They asked questions about getting a second opinion, and state they think it is "too soon" to change pt's code status to DNR, calling it a "big mistake" when talking to pt's , their stepfather. They left with pt's , requesting they talk privately to discuss pt's change in code status. When returned alone, he states the sons are "coming around," states they are just upset and shocked to see their mom so sick. He states she has been "pretty sick and having chest pain for a long time," but that she had been refusing to be seen. He states her code status will remain DNR. Provided therapeutic listening. The sons have not returned to the room, and pt's states he is going to go home for a while to get some rest.
--- NOTE | 2024-02-26 15:19 | NUR ---
RINGS TWO YELLOW RINGS c CLEAR STONES GIVEN TO DON IN SPECIMEN CUP.
[2024-02-26] MEDS ORDERED: NS 250 ML IV ONE (15:25)
[2024-02-26 15:27] LABS: Albumin, Blood 2.6 g/dL (3.4-5.0); Anion Gap 38 mmol/L (3-11); Blood Urea Nitrogen 48 mg/dL (8-24); Bun/Creatinine Ratio 18.5 (12.0-20.0); CO2, Blood 7 mmol/L (21-32); Calcium, Blood 7.8 mg/dL (8.5-10.1); Chloride, Blood 93 mmol/L (98-108); Creatinine, Blood 2.59 mg/dL (0.40-1.00); Glomerular Filtration Rate 19 (60-); Glucose, Blood 357 mg/dL (70-99); Phosphorus, Blood 9.8 mg/dL (2.5-4.9); Potassium, Blood 5.7 mmol/L (3.5-5.5); Sodium, Blood 132 mmol/L (136-145)
--- NOTE | 2024-02-26 17:54 | NUR ---
TOD PT c JUNCTIONAL RHYTHM CHANGE AT APPROX 1700. RATE 50'S. MAP CONTINUES 55-60. NIECE AT BEDSIDE. NIECE CALLED SONS TO COME TO BEDSIDE AT APPROX 1730 WHEN HR DECREASED TO 40'S. DON ALSO CALLED. TOD 1750, PT EXTUBATED TO 1753 FOR FAMILY.
[2024-02-26] MEDS ORDERED: Azithromycin 500 MG in NS 250 ML IV SCH (20:00)
[2024-02-26] MEDS ORDERED: Atorvastatin 40 MG Tab PT SCH (21:00)
== END 2024-02-26 17:50 | DRG 871 ==
LOC: ER 16:00 → ICUE 18:09
PROVIDERS: Internal Medicine Critical Care Medicine; Nurse Practitioner Acute Care; Student in an Organized Health Care Education/Training Program; ADMIT Internal Medicine
PROC: 5A12012 Performance of Cardiac Output, Single, Manual (ICD-10-PCS; 2024-02-25)
PROC: 3E033XZ Introduction of Vasopressor into Peripheral Vein, Percutaneous Approach (ICD-10-PCS; 2024-02-25)
PROC: 02HV33Z Insertion of Infusion Device into Superior Vena Cava, Percutaneous Approach (ICD-10-PCS; 2024-02-25)
PROC: 5A1935Z Respiratory Ventilation, Less than 24 Consecutive Hours (ICD-10-PCS; 2024-02-25)
PROC: 0BH17EZ Insertion of Endotracheal Airway into Trachea, Via Natural or Artificial Opening (ICD-10-PCS; 2024-02-25)
PROC: 30233N1 Transfusion of Nonautologous Red Blood Cells into Peripheral Vein, Percutaneous Approach (ICD-10-PCS; 2024-02-25)
PROC: 4A133R1 Monitoring of Arterial Saturation, Peripheral, Percutaneous Approach (ICD-10-PCS; 2024-02-25)
PROC: 30233J1 Transfusion of Nonautologous Serum Albumin into Peripheral Vein, Percutaneous Approach (ICD-10-PCS; 2024-02-25)
PROC: 3E03329 Introduction of Other Anti-infective into Peripheral Vein, Percutaneous Approach (ICD-10-PCS; 2024-02-25)
PROC: 04HY32Z Insertion of Monitoring Device into Lower Artery, Percutaneous Approach (ICD-10-PCS; principal; 2024-02-26)
PROC: 4A133B1 Monitoring of Arterial Pressure, Peripheral, Percutaneous Approach (ICD-10-PCS; 2024-02-26)
PROC: 4A133J1 Monitoring of Arterial Pulse, Peripheral, Percutaneous Approach (ICD-10-PCS; 2024-02-26)
DX: A41.9 Sepsis, unspecified organism (principal); I50.43 Acute on chronic combined systolic (congestive) and diastolic (congestive) heart failure; J96.01 Acute respiratory failure with hypoxia; J18.9 Pneumonia, unspecified organism; R65.21 Severe sepsis with septic shock; N17.9 Acute kidney failure, unspecified; E87.20 Acidosis, unspecified; E87.1 Hypo-osmolality and hyponatremia; Z66 Do not resuscitate; Z51.5 Encounter for palliative care; N39.0 Urinary tract infection, site not specified; I13.0 Hypertensive heart and chronic kidney disease with heart failure and stage 1 through stage 4 chronic kidney disease, or unspecified chronic kidney disease; M96.A3 Multiple fractures of ribs associated with chest compression and cardiopulmonary resuscitation; I46.8 Cardiac arrest due to other underlying condition; E87.5 Hyperkalemia; D69.6 Thrombocytopenia, unspecified; E03.9 Hypothyroidism, unspecified; J45.909 Unspecified asthma, uncomplicated; I48.0 Paroxysmal atrial fibrillation; K90.0 Celiac disease; F41.9 Anxiety disorder, unspecified; E11.65 Type 2 diabetes mellitus with hyperglycemia; R94.5 Abnormal results of liver function studies; E83.39 Other disorders of phosphorus metabolism; E11.22 Type 2 diabetes mellitus with diabetic chronic kidney disease; N18.9 Chronic kidney disease, unspecified; D63.1 Anemia in chronic kidney disease; E66.9 Obesity, unspecified; E78.5 Hyperlipidemia, unspecified; D51.9 Vitamin B12 deficiency anemia, unspecified; I49.01 Ventricular fibrillation; I45.10 Unspecified right bundle-branch block; E86.1 Hypovolemia; Z79.4 Long term (current) use of insulin; Z79.899 Other long term (current) drug therapy; Z79.51 Long term (current) use of inhaled steroids; Z79.82 Long term (current) use of aspirin; Z79.01 Long term (current) use of anticoagulants; Z79.84 Long term (current) use of oral hypoglycemic drugs; Z88.8 Allergy status to other drugs, medicaments and biological substances; Z88.0 Allergy status to penicillin; I25.2 Old myocardial infarction; Z87.19 Personal history of other diseases of the digestive system; Z98.890 Other specified postprocedural states; Z68.30 Body mass index [BMI] 30.0-30.9, adult; B96.20 Unspecified Escherichia coli [E. coli] as the cause of diseases classified elsewhere
CPT/HCPCS: 31500; 31720; 36415; 36430; 36556; 36600; 36620; 51702; 70450; 71045; 71260; 74177; 76705; 80047; 80048; 80053; 80061; 80069; 80202; 81001; 82550; 82607; 82728; 82746; 82803; 82947; 83540; 83550; 83605; 83735; 83880; 84100; 84145; 84443; 84484; 85014; 85025; 85610; 85730; 86850; 86900; 86901; 86923; 87040; 87077; 87086; 87186; 87449; 92950; 92953; 93005; 93010; 94002; 94003; 94644; 94664; 96365-59; 96366-59; 96368; 96375-59; 96376-59; 99291-25; 99292; A9270; C1751; C8929; C9113; J0171; J0456; J0461; J0612; J0692; J0696; J1265; J1720; J1815; J2185; J2704; J3010; J3370; J7030; J7040; J7050; J7060; J7070; P9016; P9047; Q9957; Q9967